=== PATIENT | female | born 1940 | race Caucasian/White ===

== ENCOUNTER 2019-01-10 03:35 | Inpatient (IN) | payer OTHER ==
--- NOTE | 2019-01-10 03:54 | PDOC ---
Attending Attestation - Resident Resident Name: Vishnu Kuhn - ED Attending Attestation I have performed the following: I have examined & evaluated the patient, The case was reviewed & discussed with the resident, I agree w/resident's findings & plan - HPI HPI: 01/10/19 03:53 Pt comes with tachycardia. SHe has significant cardiac history. - Physicial Exam PE: 01/10/19 04:49 Agree with resident exam. Pt has epigastric pain (and an EKG consistent with inferior ischemia) No rebound and no guarding. - Medical Decision Making 01/10/19 04:28 CBC normal; INR normal. 01/10/19 05:31 Patient Name: LAURA BOURGEOIS THIS IS A PRELIMINARY REPORT FROM [facility] DATE OF SERVICE: 2019-01-10 04:52:39 IMAGES: 412 EXAM: CT ABDOMEN AND PELVIS WITHOUT CONTRAST Small hiatal hernia. Vascular calcifications and/or small stones bilateral kidneys. No ureterolithiasis or obstructive uropathy. No bladder calculi. Unremarkable stomach, spleen, liver, and pancreas. Gallbladder not seen. No bowel obstruction, colitis, free fluid or free air. Normal appendix. Diverticulosis colon without acute diverticulitis. Small umbilical hernia containing fat. Pelvic floor laxity. Pessary in vagina. Calcifications versus surgical changes pericardium. Vertebroplasties L3-L5 01/10/19 05:49 Pt has multile kidney stones and renal insufficiency; she has a pessary to hold up her bladder, but she smells of urine, may have a UTI; UA is pending. Pt's complaint is epigastric pain and possible gastritis vs infeior MN. She will be admitted to the hospitalist for all her issues, however we feel that she belongs on the telelmetry unit, at least until she gets a 2nd cardiac enzyme. Heart Score/ECG Review - ECG Intrepretation Rhythm: Regular Rhythm - [place]: Normal - P and [place] Delta Wave(s) Present: No WPW: No - ST and T Early Repolarization: No Non Specific ST-T Wave changes: Yes - ECG Impressions Normal ECG: Yes Non-specific ST Elevation: No Ischemic Changes: Yes (lateral flipped T waves)
[2019-01-10 04:09] LABS: BASO % 0.7 % (0-2.0); EOS % 2.3 % (0-4.5); HEMATOCRIT 31.7 % (32.4-45.2); HEMOGLOBIN 10.6 GM/dL (10.7-15.3); LYMPH % 19.2 % (8-40); MCH 29.2 pg (25.7-33.7); MCHC 33.6 g/dl (32.0-36.0); MEAN CELL VOLUME 86.9 fl (80-96); MEAN PLT VOLUME 9.4 fl (7.5-11.1); NEUT % 71.8 % (42.8-82.8); PLATELET COUNT 164 K/MM3 (134-434); RBC 3.65 M/mm3 (3.60-5.2); RDW 13.1 % (11.6-15.6); WHITE BLOOD COUNT 7.1 K/mm3 (4.0-10.0)
[2019-01-10 04:20] LABS: INR 0.96 (0.83-1.09); PROTHROMBIN TIME (PATIENT) 11.3 SEC (9.7-13.0)
--- NOTE | 2019-01-10 04:23 | PDOC ---
History of Present Illness - General Stated Complaint: ABD PAIN Time Seen by Provider: 01/10/19 03:53 History Source: Patient Exam Limitations: No Limitations - History of Present Illness Initial Comments: 01/10/19 04:09 78 yo female pmh HTN, HLD, DM, multiple stents (on clopidegrel) multiple MIs ( allergic to ASA) presents to the ED with epigastric discomfort, N/V intermittently today. Pt is on vacation from [place], flight was 3 weeks ago , never been to [facility], no comparable EKG. Pt states her past NE have presented with similar epigastric discomfort, N/V and diarrhea. Denies F/C/N/V, calf tenderness, back pain, changes in bowel or bladder habits. Does not recall last echo Past History - Past Medical History Allergies/Adverse Reactions: Allergies Allergy/AdvReac Type Severity Reaction Status Date / Time aspirin AdvReac Itching Verified 01/10/19 04:59 Fish Containing Products AdvReac Itching, Verified 01/10/19 05:00 Vomiting Home Medications: Ambulatory Orders Cephalexin [Keflex] 500 mg PO DAILY 01/10/19 Clopidogrel Bisulfate [Clopidogrel] 75 mg PO DAILY 01/10/19 Doxazosin Mesylate 2 mg PO DAILY 01/10/19 Famotidine 20 mg PO DAILY 01/10/19 Furosemide 20 mg PO DAILY 01/10/19 Hydralazine HCl 100 mg PO DAILY 01/10/19 Hydrochlorothiazide 25 mg PO DAILY 01/10/19 Insulin NPH Hum/Reg Insulin Hm [Humulin 70-30 Vial] 100 unit SQ DAILY 01/10/19 Irbesartan 300 mg PO DAILY 01/10/19 Isosorbide Mononitrate [Isosorbide Mononitrate ER] 30 mg PO DAILY 01/10/19 Latanoprost 0.005% Eye Drops [Xalatan 0.005% Eye Drops -] 1 drop OU HS 01/10/19 Levothyroxine [Synthroid -] 50 mcg PO DAILY 01/10/19 Metoprolol Tartrate 50 mg PO DAILY 01/10/19 Nifedipine [Nifedipine ER] 60 mg PO DAILY 01/10/19 Ranitidine HCl 300 mg PO PRN PRN 01/10/19 Simvastatin 40 mg PO HS 01/10/19 Sumatriptan Succinate [Imitrex -] 50 mg PO DAILY 01/10/19 Review of Systems - Review of Systems Constitutional: Yes: See HPI HEENTM: Yes: See HPI Respiratory: Yes: See HPI Cardiac (ROS): Yes: See HPI ABD/GI: Yes: See HPI : Yes: See HPI Musculoskeletal: Yes: See HPI Integumentary: Yes: See HPI *Physical Exam - Physical Exam General Appearance: Yes: Nourished, Appropriately Dressed. No: Apparent Distress HEENT: positive: EOMI Neck: positive: Supple. negative: Carotid bruit Respiratory/Chest: positive: Lungs Clear, Normal Breath Sounds. negative: Respiratory Distress, Crackles, Rales, Rhonchi, Stridor, Wheezing Cardiovascular: positive: Regular Rhythm, S1, S2, Tachycardia. negative: Edema , JVD, Murmur Vascular Pulses: Dorsalis-Pedis (R): 4+, Doralis-Pedis (L): 4+ Gastrointestinal/Abdominal: positive: Flat, Soft. negative: Pulsatile Mass, Distended, Guarding, Rebound, Tenderness Musculoskeletal: negative: CVA Tenderness Extremity: positive: Normal Capillary Refill, Normal Inspection Integumentary: positive: Normal Color, Dry, Warm Neurologic: positive: Fully Oriented, Alert, Normal Mood/Affect, Normal Response Heart Score/ECG Review - History History: Moderately suspicious - Electrocardiogram EKG: Non specific repolarization disturbance - Age Age: >/= 65 - Risk Factors Risk Factors Heart Score: Yes Hx Hypercholesterolemia, Yes Hx Hypertension, Yes Hx Diabetes Based on the list above the patient has:: >/=3 risk factors or Hx atherosclerotic disease - Troponin Troponin: </= normal limit - Score Heart Score - Total: 6 ED Treatment Course - LABORATORY CBC & Chemistry Diagram: 01/10/19 04:01 01/10/19 04:01 Medical Decision Making - Medical Decision Making 01/10/19 05:48 78 yo female pmh HTN, HLD, DM, multiple stents (on clopidegrel) multiple MIs ( allergic to ASA) presents to the ED with epigastric discomfort, N/V intermittently today. Pt is on vacation from [place], flight was 3 weeks ago , never been to [facility], no comparable EKG. Pt states her past NE have presented with similar epigastric discomfort, N/V and diarrhea. Pain started over the last 24 hours, has been intermittent but most significant after 6 pm. Denies radiation, exertional symptoms, diaphoresis. Pt admits to worse pain on the left. Denies F/C/N/V, calf tenderness, back pain, changes in bowel or bladder habits. Does not recall last echo vitals show elevated HR and BP DDX INLT: ACS, PE, Pneumo, UTI, Mesinteric ischemia, kidney stone Cardiac work up including UA sent EKG sinus tach with T wave inversions lateral leads, no ekg for comparison Trop neg Cr elevate due to epigastric/left flank nature of pain with Cr of 3.1, dry scan APCT done, demonstrates stones without hydro. No known CKD or past Cr to compare values. 500 ml fluids given Pt will be admitted for r/o acs, renal insuff 01/10/19 06:36 Pt accepted for admission *DC/Admit/Observation/Transfer Diagnosis at time of Disposition: Ruled out for myocardial infarction, Renal insufficiency - Discharge Dispostion Condition at time of disposition: Stable Decision to Admit order: Yes - Referrals - Patient Instructions - Post Discharge Activity
[2019-01-10 04:37] LABS: ALBUMIN 3.9 g/dl (3.4-5.0); BILIRUBIN,TOTAL 0.3 mg/dL (0.2-1); BLOOD UREA NITROGEN 89.9 mg/dL (7-18); CALCIUM 9.2 mg/dL (8.5-10.1); CREATININE 3.1 mg/dL (0.55-1.3); POTASSIUM 4.1 mmol/L (3.5-5.1); TOT PROT 7.8 g/dl (6.4-8.2)
[2019-01-10] MEDS ORDERED: TAMSULOSIN HCL 0.4 MG CAP PO ONE (05:32)
[2019-01-10] MEDS ORDERED: SODIUM CHLORIDE 500 ML IV STA (05:33)
[2019-01-10] MEDS ORDERED: TAMSULOSIN HCL 0.4 MG CAP ONE (05:35)
[2019-01-10] MEDS ORDERED: ONDANSETRON 4 MG/2 ML VIAL IVPUSH ONE (06:37)
[2019-01-10] MEDS ORDERED: MAG HYDROX/AL HYDROX/SIMETH 30 ML UNIT-DOSE CUP PO ONE (06:43)
[2019-01-10] MEDS ORDERED: FAMOTIDINE 20 MG/50 ML IVPB 20 MG/50 ML MG IVPB ONE ×2 (06:43→06:57)
[2019-01-10] MEDS ORDERED: ONDANSETRON 4 MG/2 ML VIAL ONE (06:57)
[2019-01-10] MEDS ORDERED: MAG HYDROX/AL HYDROX/SIMETH 30 ML UNIT-DOSE CUP ONE (06:57)
[2019-01-10 07:39] LABS: EPI CELLS 1.6 /HPF (0-5/HPF); HYALINE CASTS 3 /lpf (0-8); PH,URINE 6.5 (5.0-8.0); URINE APPEARANCE CLOUDY; URINE BACTERIA 132.9 /hpf (NEGATIVE); URINE BILIRUBIN NEGATIVE (NEGATIVE); URINE COLOR YELLOW; URINE GLUCOSE (UA) NEGATIVE (NEGATIVE); URINE KETONE NEGATIVE (NEGATIVE); URINE LEUK ESTERASE 3+ (NEGATIVE); URINE NITRITE NEGATIVE (NEGATIVE); URINE PROTEIN 2+ (NEGATIVE); URINE RBC 2 /hpf (0-4); URINE UROBILINOGEN 0.2 mg/dL (0.2-1.0); URINE WBC 123 /hpf (0-5)
[2019-01-10] MEDS ORDERED: hydrALAZINE HCL 50 MG TABLET (FP) PO SCH (10:00)
[2019-01-10] MEDS ORDERED: LOSARTAN POTASSIUM 50 MG TABLET (FP) PO SCH (10:00)
--- NOTE | 2019-01-10 10:15 | CON.CARD ---
Consult Consult Specialty:: cardio - History of Present Illness Chief Complaint: abd pain History of Present Illness: 78 F visiting from [place] here with abd pain. history obtained via commercial parts professional. on DOA pt woke overnight very hungry so drank Ensure rapidly--immediately began to feel full stomach and gurgling and gas. then abd pain and vomited. bp was around 190/100, then she became very nervous and went up to 220/110. uses home wrist machine--has had readings high near 190 the past week or so, usually much better than this. at no point cp, sob, diaph, presyncope/LH. no more sx's-feels in USOH currently. 1 week ago after drinking small amt of warm milk similar, milder sx's--did not seek medical attention. diarrhea then too. often feels very gassy/bloated after eats. but never has abd pain like this, except when had her CO she also had diarrhea with same type of pain. had CABG at that time (2004). then in 2006 had stent(s?)--on plavix without ASA (ASA allergy). PMH: HTN HPL DM on insulin - Alcohol/Substance Use Hx Alcohol Use: No - Smoking History Smoking history: Never smoked Home Medications - Allergies Allergies/Adverse Reactions: Allergies Allergy/AdvReac Type Severity Reaction Status Date / Time aspirin AdvReac Itching Verified 01/10/19 04:59 Fish Containing Products AdvReac Itching, Verified 01/10/19 05:00 Vomiting - Home Medications Home Medications: Ambulatory Orders Clopidogrel Bisulfate [Clopidogrel] 75 mg PO DAILY 01/10/19 Famotidine 20 mg PO DAILY 01/10/19 Hydralazine HCl 100 mg PO DAILY 01/10/19 Hydrochlorothiazide 25 mg PO DAILY 01/10/19 Insulin NPH Hum/Reg Insulin Hm [Humulin 70-30 Vial] 100 unit SQ DAILY 01/10/19 Irbesartan 300 mg PO DAILY 01/10/19 Isosorbide Mononitrate [Isosorbide Mononitrate ER] 30 mg PO DAILY 01/10/19 Latanoprost 0.005% Eye Drops [Xalatan 0.005% Eye Drops -] 1 drop OU HS 01/10/19 Metoprolol Tartrate 50 mg PO BID 01/10/19 Nifedipine [Nifedipine ER] 60 mg PO DAILY 01/10/19 Ranitidine HCl 300 mg PO PRN PRN 01/10/19 Sumatriptan Succinate [Imitrex -] 50 mg PO DAILY 01/10/19 Family Disease History - Family Disease History Family History: Denies (no known cmp) Review of Systems - Review of Systems Constitutional: denies: Chills, Fever Eyes: denies: Eye Pain HENT: denies: Nasal Congestion Neck: denies: Stiffness Cardiovascular: denies: Palpitations Respiratory: denies: Orthopnea, PND Gastrointestinal: denies: Rectal Bleeding, Vomiting Blood Genitourinary: denies: Burning, Hematuria Musculoskeletal: denies: Muscle Pain Integumentary: denies: Rash Neurological: denies: Numbness, Seizure, Syncope Endocrine: denies: Excessive Sweating Hematology/Lymphatic: denies: Excessive Bleeding Vital Signs: Vital Signs Temperature 97.6 F 01/10/19 08:49 Pulse Rate 99 H 01/10/19 08:49 Respiratory Rate 20 01/10/19 06:42 Blood Pressure 129/71 01/10/19 08:49 O2 Sat by Pulse Oximetry (%) 99 01/10/19 08:49 Constitutional: Yes: Well Nourished, No Distress Eyes: No: Sclera Icterus HENT: No: Nasal Congestion Neck: No: Decreased ROM Respiratory: Yes: CTA Bilaterally. No: Accessory Muscle Use, Rales, Wheezes Gastrointestinal: Yes: Normal Bowel Sounds. No: Distention, Hepatomegaly, Palpable Mass, Tenderness Cardiovascular: Yes: Regular Rate and Rhythm JVD: No Carotid Bruit: No PMI: Non-Displaced Heart Sounds: Yes: S1, S2. No: Gallop Murmur: No: Systolic Murmur, Diastolic Murmur Musculoskeletal: Yes: Other (No kyphosis) Extremities: No: Cold, Cyanosis Edema: No Peripheral Pulses: 2+ Left Carotid, 2+ Right Carotid, 2+ Left Doralis Pedis, 2+ Right Dorsalis Pedis Integumentary: No: Jaundice Neurological: Yes: Alert, Oriented (x3) Psychiatric: No: Agitated - Other Data Labs, Other Data: CBC, BMP 01/10/19 04:01 01/10/19 04:01 INR, PTT INR 0.96 (0.83-1.09) 01/10/19 04:01 Troponin, BNP 01/10/19 04:01 Troponin I 0.02 Troponin, BNP 01/10/19 04:01 Troponin I 0.02 Laboratory Tests 01/10/19 01/10/19 01/10/19 04:01 04:01 04:32 WBC 7.1 Hgb 10.6 L Plt Count 164 Sodium 136 Potassium 4.1 Carbon Dioxide 22 BUN 89.9 H Creatinine 3.1 H Lactic Acid 1.4 AST 21 ALT 21 Creatine Kinase 86 Troponin I 0.02 Lipase 259 Assessment/Plan ECG: sinus tach, normal axis/interv. no path q's. nonsp ST-T lateral leads (no prior) ECG #2: no signif change CXR: sternal sutures, prominent heart. clear lungs/pleura abd pain, vomiting/diarrhea, h/o CAD: -[facility], states had CO then. insulin-dep't diabetic -afebrile. WBC, lipase, lactate, LFTs WNL. CT abd/pelvis with no acute process. abdomen is non-tender. -sx's sound most consistent with GI etiology with strong gas/bloating component , ? component of DM gastroparesis. -however must exclude UA/ACS. -ECG non-ischemic, nonsp ST-T ? LVH related (cardiomegaly noted on CXR). initial trop neg--rpt pending -mult prior stents with ASA allergy, on plavix--details of stents not available- ->cont plavix, home anti-anginals (metoprolol, iso mononitrate) -on simva 40 at home--will change to atorva 80 while here for possibility of ACS -echo -if enzymes negative, plan noninvasive ischemia eval (MPI) saturday -hi risk for ROGER from cath (GFR <20, DM, elderly) HTN: -initially elevated in ER-->came down -currently controlled -cont home meds CKD: -no baseline data available -bun/creat 89/3.1. monitor trend. anemia: -hgb 10, no prior baseline -trend labs
[2019-01-10] MEDS ORDERED: LOSARTAN POTASSIUM 50 MG TABLET (FP) ONE (10:49)
[2019-01-10] MEDS: HYDROCHLOROTHIAZIDE 25 MG TABLET (FP) PO SCH (11:00)
[2019-01-10] MEDS: NIFEdipine E.R 60 MG TABLET (UD) PO SCH (11:00)
[2019-01-10] MEDS: METOPROLOL TARTRATE 50 MG TABLET (FP) PO SCH ×2 (11:00→22:30)
[2019-01-10] MEDS ORDERED: INSULIN SLIDING SCALE (NOVOLOG) 1 VIAL SQ SCH (11:00)
[2019-01-10] MEDS: RANITIDINE HCL 150 MG TABLET (FP) PO SCH (11:00)
[2019-01-10] MEDS ORDERED: CLOPIDOGREL BISULFATE 75 MG TABLET (FP) ONE (11:11)
[2019-01-10] MEDS ORDERED: METOPROLOL TARTRATE 50 MG TABLET (FP) ONE (11:11)
--- NOTE | 2019-01-10 11:37 | HP ---
CHIEF COMPLAINT:abdominal discomfort, nausea, vomiting PCP:from [place] HISTORY OF PRESENT ILLNESS: Patient is a 78 year old female, lithuanian speaking, with past medical history of HTN, HLD, IDDM, and CAD (s/p CABG 2004 and PCI 2006), presented to the ED due sudden onset abdominal discomfort, accompanied by nausea and an episode of NBNB vomiting after dinner last night. Patient reports the discomfort as bloating/gas , more so at the epigastric area. Patient reported she had similar symptoms in the past when she had the HI. Patient reported she became anxious overnight and was not able to sleep. She came here in the for a vacation from [place]. She arrived 3 weeks ago, and is scheduled to fly back on Saturday. Patient also reported she missed some of her medications for the past 3 days as she ran out. At time of interview, patient reports feelings, eating comfortably in bed. She denies any fever, chills, headache, dizziness, chest pain, SOB, abdominal pain, diarrhea. ER course was notable for: (1)Trop neg x1 (2) (3) Recent Travel:from [place] PAST MEDICAL HISTORY: HTN HLD IDDM CAD PAST SURGICAL HISTORY: CABG (2004) PCI (2006) Hx of C-sections Social History: Smoking:denies Alcohol:denies Drugs: denies Family History:none Allergies aspirin Adverse Reaction (Verified 01/10/19 04:59) Itching Fish Containing Products Adverse Reaction (Verified 01/10/19 05:00) Itching, Vomiting HOME MEDICATIONS: Home Medications Medication Instructions Recorded Clopidogrel Bisulfate [Clopidogrel] 75 mg PO DAILY 01/10/19 Famotidine 20 mg PO DAILY 01/10/19 Hydralazine HCl 100 mg PO DAILY 01/10/19 Hydrochlorothiazide 25 mg PO DAILY 01/10/19 Insulin NPH Hum/Reg Insulin Hm 100 unit SQ DAILY 01/10/19 [Humulin 70-30 Vial] Irbesartan 300 mg PO DAILY 01/10/19 Isosorbide Mononitrate [Isosorbide 30 mg PO DAILY 01/10/19 Mononitrate ER] Latanoprost 0.005% Eye Drops 1 drop OU HS 01/10/19 [Xalatan 0.005% Eye Drops -] Metoprolol Tartrate 50 mg PO BID 01/10/19 Nifedipine [Nifedipine ER] 60 mg PO DAILY 01/10/19 Ranitidine HCl 300 mg PO PRN PRN 01/10/19 Sumatriptan Succinate [Imitrex -] 50 mg PO DAILY 01/10/19 REVIEW OF SYSTEMS CONSTITUTIONAL: Absent: fever, chills, diaphoresis, generalized weakness, malaise, loss of appetite, weight change HEENT: Absent: rhinorrhea, nasal congestion, throat pain, throat swelling, difficulty swallowing, mouth swelling, ear pain, eye pain, visual changes CARDIOVASCULAR: Absent: chest pain, syncope, palpitations, irregular heart rate, lightheadedness , peripheral edema RESPIRATORY: Absent: cough, shortness of breath, dyspnea with exertion, orthopnea, wheezing, stridor, hemoptysis GASTROINTESTINAL: nausea, vomiting, epigastric discomfort Absent: abdominal distension,diarrhea, constipation, melena, hematochezia GENITOURINARY: Absent: dysuria, frequency, urgency, hesitancy, hematuria, flank pain, genital pain MUSCULOSKELETAL: Absent: myalgia, arthralgia, joint swelling, back pain, neck pain SKIN: Absent: rash, itching, pallor HEMATOLOGIC/IMMUNOLOGIC: Absent: easy bleeding, easy bruising, lymphadenopathy, frequent infections ENDOCRINE: Absent: unexplained weight gain, unexplained weight loss, heat intolerance, cold intolerance NEUROLOGIC: Absent: headache, focal weakness or paresthesias, dizziness, unsteady gait, seizure, mental status changes, bladder or bowel incontinence PSYCHIATRIC: Absent: anxiety, depression, suicidal or homicidal ideation, hallucinations. PHYSICAL EXAMINATION Vital Signs - 24 hr 01/10/19 01/10/19 01/10/19 03:50 06:42 08:49 Temperature 97.9 F 97.6 F Pulse Rate 110 H Pulse Rate [ 121 H 99 H Radial] Respiratory 18 20 Rate Blood Pressure 167/77 Blood Pressure 169/89 129/71 [Left Arm] O2 Sat by Pulse 100 100 99 Oximetry (%) GENERAL: Awake, alert, and fully oriented, in no acute distress. HEAD: Normal with no signs of trauma. EYES: PERRLa, EOMI, sclera anicteric, conjunctiva clear. EARS, NOSE, THROAT: Moist mucous membranes. NECK: Normal range of motion, supple. LUNGS: Breath sounds equal, clear to auscultation bilaterally. HEART: Regular rate and rhythm, normal S1 and S2 without murmur, rub or gallop. ABDOMEN: Soft, nontender, not distended, normoactive bowel sounds. MUSCULOSKELETAL: Normal range of motion at all joints. UPPER EXTREMITIES: 2+ pulses, warm, well-perfused. LOWER EXTREMITIES: 2+ pulses, warm, well-perfused. No peripheral edema. NEUROLOGICAL: Cranial nerves II-XII intact. Normal speech. PSYCHIATRIC: Cooperative. Good eye contact. Appropriate mood and affect. SKIN: Warm, dry, normal turgor, no rashes or lesions noted. Laboratory Results - last 24 hr 01/10/19 01/10/19 01/10/19 04:01 04:01 04:01 WBC 7.1 RBC 3.65 Hgb 10.6 L Hct 31.7 L MCV 86.9 MCH 29.2 MCHC 33.6 RDW 13.1 Plt Count 164 MPV 9.4 Absolute Neuts (auto) 5.1 Neutrophils % 71.8 Lymphocytes % 19.2 Monocytes % 6.0 Eosinophils % 2.3 Basophils % 0.7 Nucleated RBC % 0 PT with INR 11.30 INR 0.96 Sodium 136 Potassium 4.1 Chloride 101 Carbon Dioxide 22 Anion Gap 13 BUN 89.9 H Creatinine 3.1 H Est GFR (CKD-EPI)AfAm 15.80 Est GFR (CKD-EPI)NonAf 13.63 POC Glucometer Random Glucose 146 H Lactic Acid Calcium 9.2 Magnesium 2.0 Total Bilirubin 0.3 AST 21 ALT 21 Alkaline Phosphatase 68 Creatine Kinase 86 Troponin I 0.02 Total Protein 7.8 Albumin 3.9 Lipase 259 Urine Color Urine Appearance Urine pH Ur Specific [place] Urine Protein Urine Glucose (UA) Urine Ketones Urine Blood Urine Nitrite Urine Bilirubin Urine Urobilinogen Ur Leukocyte Esterase Urine WBC (Auto) Urine RBC (Auto) Urine Casts (Auto) U Epithel Cells (Auto) Urine Bacteria (Auto) 01/10/19 01/10/19 01/10/19 04:32 07:25 07:42 WBC RBC Hgb Hct MCV MCH MCHC RDW Plt Count MPV Absolute Neuts (auto) Neutrophils % Lymphocytes % Monocytes % Eosinophils % Basophils % Nucleated RBC % PT with INR INR Sodium Potassium Chloride Carbon Dioxide Anion Gap BUN Creatinine Est GFR (CKD-EPI)AfAm Est GFR (CKD-EPI)NonAf POC Glucometer 158 Random Glucose Lactic Acid 1.4 Calcium Magnesium Total Bilirubin AST ALT Alkaline Phosphatase Creatine Kinase Troponin I Total Protein Albumin Lipase Urine Color Yellow Urine Appearance Cloudy Urine pH 6.5 Ur Specific [place] 1.009 L Urine Protein 2+ H Urine Glucose (UA) Negative Urine Ketones Negative Urine Blood Trace Urine Nitrite Negative Urine Bilirubin Negative Urine Urobilinogen 0.2 Ur Leukocyte Esterase 3+ H Urine WBC (Auto) 123 Urine RBC (Auto) 2 Urine Casts (Auto) 3 U Epithel Cells (Auto) 1.6 Urine Bacteria (Auto) 132.9 01/10/19 10:40 WBC RBC Hgb Hct MCV MCH MCHC RDW Plt Count MPV Absolute Neuts (auto) Neutrophils % Lymphocytes % Monocytes % Eosinophils % Basophils % Nucleated RBC % PT with INR INR Sodium Potassium Chloride Carbon Dioxide Anion Gap BUN Creatinine Est GFR (CKD-EPI)AfAm Est GFR (CKD-EPI)NonAf POC Glucometer Random Glucose Lactic Acid Calcium Magnesium Total Bilirubin AST ALT Alkaline Phosphatase Creatine Kinase 97 Troponin I 0.09 H Total Protein Albumin Lipase Urine Color Urine Appearance Urine pH Ur Specific [place] Urine Protein Urine Glucose (UA) Urine Ketones Urine Blood Urine Nitrite Urine Bilirubin Urine Urobilinogen Ur Leukocyte Esterase Urine WBC (Auto) Urine RBC (Auto) Urine Casts (Auto) U Epithel Cells (Auto) Urine Bacteria (Auto) ASSESSMENT/PLAN: Patient is a 78 year old female, lithuanian speaking, with past medical history of HTN, HLD, IDDM, and CAD (s/p CABG 2004 and PCI 2006), presented to the ED due sudden onset abdominal discomfort, accompanied by nausea and an episode of NBNB vomiting after dinner. #Epigastric discomfort -rule out ACS, may be GERD vs DM gastropathy -CTAP: no acute abdominal pathology -Tele monitoring -Trop 0.02 --> 0.09, will continue to trend -Cardiology (Dr. Pollock) consulted. Recommendations appreciated. -Continue ASA and Plavix -Switch Simvastatin to Lipitor 80mg -Echo #ELEAZAR -baseline unknown -Cr 3.1 -will order urine lytes and crea -CT scan done showed no renal obstruction -Nephrology (Dr. Oseguera) consulted. #IDDM -Insulin sliding scale implemented -BGM ACHS -will hold home insulin (NPH) #HLD -Will switch Simvastatin to Atorvastatin 80mg daily #HTN -Will continue home home meds Irbesartan, HCTZ, Metoprolol, Nifedipine #FEN -Not on any standing fluids -Electrolytes wnl, routine bmp monitoring -Diabetic/sodium restricted diet #Prophylaxis -Heparin 5000units sq tid #Disposition -Tele Visit type - Emergency Visit Emergency Visit: Yes ED Registration Date: 01/10/19 Care time: The patient presented to the Emergency Department on the above date and was hospitalized for further evaluation of their emergent condition. - New Patient This patient is new to me today: Yes Date on this admission: 01/11/19 - Critical Care Critical Care patient: No ATTENDING PHYSICIAN STATEMENT I saw and evaluated the patient. I reviewed the resident's note and discussed the case with the resident. I agree with the resident's findings and plan as documented. SUBJECTIVE: OBJECTIVE: ASSESSMENT AND PLAN:
[2019-01-10] MEDS: INSULIN SLIDING SCALE (NOVOLOG) 1 VIAL SQ SCH ×3 (12:00→22:30)
[2019-01-10] MEDS: CLOPIDOGREL BISULFATE 75 MG TABLET (FP) PO SCH (12:54)
[2019-01-10] MEDS ORDERED: HEPARIN NA (PORCINE) 5,000 UNITS/ML 1ML VIAL SQ SCH (14:00)
[2019-01-10] MEDS ORDERED: HEPARIN NA (PORCINE) 5,000 UNITS/ML 1ML VIAL ONE (14:18)
--- NOTE | 2019-01-10 16:15 | PN ---
Teaching Attending Note Name of Resident: Fouzia Almanza ATTENDING PHYSICIAN STATEMENT I saw and evaluated the patient. I reviewed the resident's note and discussed the case with the resident. I agree with the resident's findings and plan as documented. SUBJECTIVE: Episode of epigastric pain resolved. No nausea/vomiting/ lightheadedness. Tolerating oral intake. OBJECTIVE: Afebrile, Hemodynamically Stable. AAO x 3. Last Vital Signs Temp Pulse Resp BP Pulse Ox 97.6 F 99 H 20 129/71 99 01/10/19 08:49 01/10/19 08:49 01/10/19 06:42 01/10/19 08:49 01/10/19 08:49 HEENT- Atramatic, normocephalic. Heart - S1, s2, RRR Lungs - clear to auscultation Abdomen - Soft, non-tender. Bowel Sounds normal. Extremities - No calf tenderness. No edema. Neuro - AAO x 3. Tone/Power normal all 4 extremities. Laboratory Results - last 24 hr 01/10/19 01/10/19 01/10/19 04:01 04:01 04:01 WBC 7.1 RBC 3.65 Hgb 10.6 L Hct 31.7 L MCV 86.9 MCH 29.2 MCHC 33.6 RDW 13.1 Plt Count 164 MPV 9.4 Absolute Neuts (auto) 5.1 Neutrophils % 71.8 Lymphocytes % 19.2 Monocytes % 6.0 Eosinophils % 2.3 Basophils % 0.7 Nucleated RBC % 0 PT with INR 11.30 INR 0.96 Sodium 136 Potassium 4.1 Chloride 101 Carbon Dioxide 22 Anion Gap 13 BUN 89.9 H Creatinine 3.1 H Est GFR (CKD-EPI)AfAm 15.80 Est GFR (CKD-EPI)NonAf 13.63 POC Glucometer Random Glucose 146 H Lactic Acid Calcium 9.2 Magnesium 2.0 Total Bilirubin 0.3 AST 21 ALT 21 Alkaline Phosphatase 68 Creatine Kinase 86 Troponin I 0.02 Total Protein 7.8 Albumin 3.9 Lipase 259 Urine Color Urine Appearance Urine pH Ur Specific [place] Urine Protein Urine Glucose (UA) Urine Ketones Urine Blood Urine Nitrite Urine Bilirubin Urine Urobilinogen Ur Leukocyte Esterase Urine WBC (Auto) Urine RBC (Auto) Urine Casts (Auto) U Epithel Cells (Auto) Urine Bacteria (Auto) 08/01/10/19 01/10/19 04:32 07:25 07:42 WBC RBC Hgb Hct MCV MCH MCHC RDW Plt Count MPV Absolute Neuts (auto) Neutrophils % Lymphocytes % Monocytes % Eosinophils % Basophils % Nucleated RBC % PT with INR INR Sodium Potassium Chloride Carbon Dioxide Anion Gap BUN Creatinine Est GFR (CKD-EPI)AfAm Est GFR (CKD-EPI)NonAf POC Glucometer 158 Random Glucose Lactic Acid 1.4 Calcium Magnesium Total Bilirubin AST ALT Alkaline Phosphatase Creatine Kinase Troponin I Total Protein Albumin Lipase Urine Color Yellow Urine Appearance Cloudy Urine pH 6.5 Ur Specific [place] 1.009 L Urine Protein 2+ H Urine Glucose (UA) Negative Urine Ketones Negative Urine Blood Trace Urine Nitrite Negative Urine Bilirubin Negative Urine Urobilinogen 0.2 Ur Leukocyte Esterase 3+ H Urine WBC (Auto) 123 Urine RBC (Auto) 2 Urine Casts (Auto) 3 U Epithel Cells (Auto) 1.6 Urine Bacteria (Auto) 132.9 01/10/19 01/10/19 10:40 12:49 WBC RBC Hgb Hct MCV MCH MCHC RDW Plt Count MPV Absolute Neuts (auto) Neutrophils % Lymphocytes % Monocytes % Eosinophils % Basophils % Nucleated RBC % PT with INR INR Sodium Potassium Chloride Carbon Dioxide Anion Gap BUN Creatinine Est GFR (CKD-EPI)AfAm Est GFR (CKD-EPI)NonAf POC Glucometer 178 Random Glucose Lactic Acid Calcium Magnesium Total Bilirubin AST ALT Alkaline Phosphatase Creatine Kinase 97 Troponin I 0.09 H Total Protein Albumin Lipase Urine Color Urine Appearance Urine pH Ur Specific [place] Urine Protein Urine Glucose (UA) Urine Ketones Urine Blood Urine Nitrite Urine Bilirubin Urine Urobilinogen Ur Leukocyte Esterase Urine WBC (Auto) Urine RBC (Auto) Urine Casts (Auto) U Epithel Cells (Auto) Urine Bacteria (Auto) Current Medications Generic Name Dose Route Start Last Admin Trade Name Freq PRN Reason Stop Dose Admin Atorvastatin Calcium 80 mg 01/10/19 22:00 Lipitor - PO HS NISHA Clopidogrel Bisulfate 75 mg 01/10/19 10:00 01/10/19 12:54 Plavix - PO 75 mg DAILY NISHA Administration Heparin Sodium (Porcine) 5,000 unit 01/10/19 14:00 01/10/19 14:32 Heparin - SQ 5,000 unit TID NISHA Administration Hydralazine HCl 100 mg 01/10/19 10:00 01/10/19 11:00 Apresoline - PO 100 mg DAILY NISHA Administration Hydrochlorothiazide 25 mg 01/10/19 10:00 01/10/19 11:00 Hctz - PO 25 mg DAILY NISHA Administration Insulin Aspart 1 vial 01/10/19 11:00 01/10/19 12:00 Novolog Vial Sliding Scale - SQ 2 units ACHS NISHA Administration Protocol Isosorbide Mononitrate 30 mg 01/11/19 10:00 Imdur - PO DAILY NISHA Latanoprost 1 drop 01/10/19 22:00 Xalatan 0.005% Eye Drops - OU HS [facility] Losartan Potassium 100 mg 01/10/19 10:00 01/10/19 11:00 Cozaar - PO 100 mg DAILY NISHA Administration Metoprolol Tartrate 50 mg 01/10/19 10:00 01/10/19 11:00 Lopressor - PO 50 mg BID NISHA Administration Nifedipine 60 mg 01/10/19 10:00 01/10/19 11:00 Procardia Xl - PO 60 mg DAILY NISHA Administration Ranitidine HCl 150 mg 01/10/19 10:00 01/10/19 11:00 Zantac - PO 150 mg DAILY NISHA Administration Home Medications Medication Instructions Recorded Clopidogrel Bisulfate [Clopidogrel] 75 mg PO DAILY 01/10/19 Famotidine 20 mg PO DAILY 01/10/19 Hydralazine HCl 100 mg PO DAILY 01/10/19 Hydrochlorothiazide 25 mg PO DAILY 01/10/19 Insulin NPH Hum/Reg Insulin Hm 100 unit SQ DAILY 01/10/19 [Humulin 70-30 Vial] Irbesartan 300 mg PO DAILY 01/10/19 Isosorbide Mononitrate [Isosorbide 30 mg PO DAILY 01/10/19 Mononitrate ER] Latanoprost 0.005% Eye Drops 1 drop OU HS 01/10/19 [Xalatan 0.005% Eye Drops -] Metoprolol Tartrate 50 mg PO BID 01/10/19 Nifedipine [Nifedipine ER] 60 mg PO DAILY 01/10/19 Ranitidine HCl 300 mg PO PRN PRN 01/10/19 Sumatriptan Succinate [Imitrex -] 50 mg PO DAILY 01/10/19 ASSESSMENT AND PLAN: 78 year old female with history of HTN, HLD, DM 2, CAD (s/p CABG 2004/PCI 2006) , DJD Spine s/p Spinal Sx, presents with rapid onset epigastric discomfort with associated vomiting x 1/bloating. No palpitations/dyspnea/diaphoresis/ lightheadedness. 1. Epigastric Pain, possible Atypical CP Rising TropI, TnI up to 0.09 ECG - no ischemic changes. CT A/P - non-obstructing renal stones, diverticulosis, multilevel DJD L spine s/ p Sx. No acute intra-abdominal process. Telemonitoring, Serial tropI, NTG PRN Cardiology consulted - for NPI saturday if no further TropI rise. If any further troponin rise, to consider starting Heparin drip. 2. CAD s/p CABG - Continue Clopidogrel, BB, ARB, ISMN. (ASA Allergy) NTG PRN 2. HTN - Continue ISMN, Irbesartan, Metoprolol, Nifedipine. 3. HLD - on Lipitor 4. DM 2 - Maintain on sliding scale. 5. ELEAZAR vs CKD - Baseline Creat unknown. Patient from [facility] Will attempt to find out. No obstruction on imaging. Urine Na and Urine Creat requested. DVT Px - Heparin SQ
[2019-01-10] MEDS ORDERED: HEPARIN NA (PORCINE) 5,000 UNITS/ML 1ML VIAL IVPUSH PRN ×2 (18:02)
[2019-01-10] MEDS ORDERED: HEPARIN INFUSION - 25,000 UNITS/500 ML INFUS.BAG IVPB ONE (18:35)
[2019-01-10] MEDS: HEPARIN - 25,000 UNIT in SODIUM CHLORIDE 495 ML IV SCH (18:53)
[2019-01-10] MEDS ORDERED: hydrALAZINE HCL 20 MG/ML VIAL IVPUSH ONE (20:24)
[2019-01-10] MEDS ORDERED: PT OWN MED DRAWER 7, Y5N ONE (21:00)
[2019-01-10 21:11] VITALS: BMI 24.5
[2019-01-10 21:32] LABS: RATIO URIN PROTEIN/URIN CREAT 4.81 MG/DL
[2019-01-10 21:33] LABS: PH URINE RANDOM 7.5 (4.5-8)
[2019-01-10] MEDS: ATORVASTATIN CA 80 MG TABLET (FP) PO SCH (22:30)
[2019-01-10] MEDS: LATANOPROST 0.005% OPHTH SOLN 2.5ML BOTTLE OU SCH (23:55)
[2019-01-11] MEDS: INSULIN SLIDING SCALE (NOVOLOG) 1 VIAL SQ SCH ×4 (06:55→21:10)
[2019-01-11] MEDS: LEVOTHYROXINE NA 50 MCG TABLET (FP) PO SCH (06:55)
[2019-01-11 07:38] LABS: BASO % 0.6 % (0-2.0); EOS % 8.4 % (0-4.5); HEMATOCRIT 30.1 % (32.4-45.2); HEMOGLOBIN 10.3 GM/dL (10.7-15.3); LYMPH % 34.5 % (8-40); MCH 29.9 pg (25.7-33.7); MCHC 34.3 g/dl (32.0-36.0); MEAN CELL VOLUME 87.1 fl (80-96); MEAN PLT VOLUME 9.6 fl (7.5-11.1); MONO % 8.4 % (3.8-10.2); NEUT % 48.1 % (42.8-82.8); PLATELET COUNT 179 K/MM3 (134-434); RBC 3.46 M/mm3 (3.60-5.2); RDW 13.2 % (11.6-15.6); WHITE BLOOD COUNT 6.4 K/mm3 (4.0-10.0)
--- NOTE | 2019-01-11 08:26 | PN ---
Progress Note, Physician Chief Complaint: abd pain History of Present Illness: no more abd pain, vomiting or diarrhea no cp, sob no palpitations no cigs - Current Medication List Current Medications: Active Medications Atorvastatin Calcium (Lipitor -) 80 mg PO HS [facility] Last Admin: 01/10/19 22:30 Dose: 80 mg Clopidogrel Bisulfate (Plavix -) 75 mg PO DAILY [facility] Last Admin: 01/10/19 12:54 Dose: 75 mg Heparin Sodium (Porcine) (Heparin -) 1,000 unit IVPUSH PRN PRN PRN Reason: Heparin Heparin Sodium (Porcine) (Heparin -) 5,000 unit IVPUSH PRN PRN PRN Reason: Heparin Hydralazine HCl (Apresoline -) 100 mg PO DAILY [facility] Last Admin: 01/10/19 11:00 Dose: 100 mg Hydrochlorothiazide (Hctz -) 25 mg PO DAILY [facility] Last Admin: 01/10/19 11:00 Dose: 25 mg Heparin Sodium (Porcine) 25, (000 unit/ Sodium Chloride) 500 mls @ 16 mls/hr IV TITR [facility]; Protocol Last Titration: 01/11/19 03:05 Dose: 650 unit/hr, 13 mls/hr Insulin Aspart (Novolog Vial Sliding Scale -) 1 vial SQ ACHS [facility]; Protocol Last Admin: 01/11/19 06:55 Dose: Not Given Isosorbide Mononitrate (Imdur -) 30 mg PO DAILY [facility] Latanoprost (Xalatan 0.005% Eye Drops -) 1 drop OU HS [facility] Last Admin: 01/10/19 23:55 Dose: Not Given Levothyroxine Sodium (Synthroid -) 50 mcg PO DAILY@0700 [facility] Last Admin: 01/11/19 06:55 Dose: 50 mcg Losartan Potassium (Cozaar -) 100 mg PO DAILY [facility] Last Admin: 01/10/19 11:00 Dose: 100 mg Metoprolol Tartrate (Lopressor -) 50 mg PO BID [facility] Last Admin: 01/10/19 22:30 Dose: 50 mg Nifedipine (Procardia Xl -) 60 mg PO DAILY [facility] Last Admin: 01/10/19 11:00 Dose: 60 mg Ranitidine HCl (Zantac -) 150 mg PO DAILY [facility] Last Admin: 01/10/19 11:00 Dose: 150 mg Sumatriptan Succinate (Imitrex -) 50 mg PO DAILY PRN PRN Reason: HEADACHE - Objective Vital Signs: Vital Signs Temperature 97.6 F 01/11/19 06:00 Pulse Rate 79 01/11/19 06:00 Respiratory Rate 17 01/11/19 08:00 Blood Pressure 139/75 01/11/19 06:00 O2 Sat by Pulse Oximetry (%) 100 01/11/19 08:00 Constitutional: Yes: No Distress, Calm Eyes: No: Sclera Icterus HENT: No: Nasal Congestion Cardiovascular: Yes: Regular Rate and Rhythm, S1, S2, Other (PMI non diplaced). No: JVD, Gallop, Murmur Respiratory: Yes: CTA Bilaterally. No: Accessory Muscle Use, Rales, Wheezes Gastrointestinal: Yes: Normal Bowel Sounds, Soft. No: Tenderness Musculoskeletal: Yes: Other (No kyphosis) Extremities: No: Cold, Cyanosis Edema: No Integumentary: No: Jaundice Neurological: Yes: Alert, Oriented (x3) Psychiatric: No: Agitated Labs: CBC, BMP 01/11/19 05:52 INR, PTT INR 0.96 (0.83-1.09) 01/10/19 04:01 Assessment/Plan ECG: sinus tach, normal axis/interv. no path q's. nonsp ST-T lateral leads (no prior) ECG #2: no signif change CXR: sternal sutures, prominent heart. clear lungs/pleura tele: NSR, APCs, artifact abd pain, vomiting/diarrhea, h/o CAD: -reports same sx's at time of 2004 [facility] when had CABG, states had DC then. insulin-dep't diabetic -afebrile. WBC, lipase, lactate, LFTs WNL. CT abd/pelvis with no acute process. abdomen is non-tender. -sx's sound most consistent with GI etiology with strong gas/bloating component , ? component of DM gastroparesis. -however must exclude UA/ACS. -ECG non-ischemic, nonsp ST-T ? LVH related (cardiomegaly noted on CXR). -troponin trend fairly flat, indeterminate range (0.02-0.09-0.12-0.08) -pt is hi risk for ROGER from cath (GFR <20, DM, elderly) -for noninvasive ischemia eval (MPI) saturday -mult prior stents with ASA allergy, on plavix--details of stents not available- ->cont plavix, home anti-anginals (metoprolol, iso mononitrate) -on simva 40 at home--will change to atorva 80 while here for possibility of ACS HTN: -remains uncontrolled at times, severe at night -hydralazine short half life requires at least bid-tid dosing--likely losing am dose effect by PM hence bp to 190 -change hydral 100 qd to 50 bid, observe bp trend -cont remainder of home meds same CKD: -no baseline data available -bun/creat 89/3.1-->3.5. -observe trend -renal input appreciated: acute kidney injury, nephrotic range proteinuria-- holding thiazide, ARB anemia: -hgb 10, no prior baseline -trend labs
[2019-01-11 08:56] LABS: ALBUMIN 3.2 g/dl (3.4-5.0); TOT PROT 6.8 g/dl (6.4-8.2)
--- NOTE | 2019-01-11 08:58 | CONSULT ---
Consult - text type - Consultation Consultation Note: Renal consult for ELEAZAR This is a 78 year old woman with history of of CAD s/p CABG, Hypertension, DM on insulin who presented with complaints of Abd pain with N/V and found to have Cr of 3.1. No prior Cr in records. Pt seen and examined at the bedside. Awake alert, reports no further N/V or diarrhea today. No fever or chills. Denies any sob. Was told in the past that her renal function was abnormal. Denies any flank pain, dysuira, frequency or urgency. Denies any NSAID use. No recent contrast exposure. Pt was on ARB/HCTZ/Lasix at home. Denies any skin rash. PMHx: as above Allergies: Aspirin Family Hx: NC Social Hx: No T/A/D ROS: as per HPI, all other pertinent ros negative Home Medications Medication Instructions Recorded Clopidogrel Bisulfate [Clopidogrel] 75 mg PO DAILY 01/10/19 Doxazosin Mesylate [Cardura -] 2 mg PO DAILY 01/10/19 Famotidine 20 mg PO DAILY 01/10/19 Furosemide [Lasix] 20 mg PO DAILY 01/10/19 Hydralazine HCl 100 mg PO DAILY 01/10/19 Hydrochlorothiazide 25 mg PO DAILY 01/10/19 Insulin NPH Hum/Reg Insulin Hm 15 unit SQ BID 01/10/19 [Humulin 70-30 Vial] Irbesartan 300 mg PO DAILY 01/10/19 Isosorbide Mononitrate [Isosorbide 30 mg PO DAILY 01/10/19 Mononitrate ER] Latanoprost 0.005% Eye Drops 1 drop OU HS 01/10/19 [Xalatan 0.005% Eye Drops -] Levothyroxine [Synthroid -] 50 mcg PO DAILY 01/10/19 Metoprolol Tartrate 50 mg PO BID 01/10/19 Multivitamin [One-Daily 1 each PO DAILY 01/10/19 Multi-Vitamin] Nifedipine [Nifedipine ER] 30 mg PO DAILY 01/10/19 Ranitidine HCl 300 mg PO PRN PRN 01/10/19 Simvastatin [Zocor -] 40 mg PO HS 01/10/19 Sumatriptan Succinate [Imitrex -] 50 mg PO DAILY 01/10/19 Vital Signs Temperature 97.6 F 01/11/19 06:00 Pulse Rate 79 01/11/19 06:00 Respiratory Rate 17 01/11/19 08:00 Blood Pressure 139/75 01/11/19 06:00 O2 Sat by Pulse Oximetry (%) 100 01/11/19 08:00 Intake & Output 01/08/19 01/09/19 01/10/19 01/11/19 23:59 23:59 23:59 23:59 Intake Total 120 151 Balance 120 151 Weight 60.781 kg NAD awake and alert neck supple RRR CTA soft NT/ND no LE edema no bladder distension CBC, BMP 01/11/19 05:52 01/11/19 05:52 Laboratory Tests 01/10/19 01/11/19 04:01 05:52 BUN 89.9 H 84.0 H Creatinine 3.1 H 3.5 H Calcium 8.7 Phosphorus 4.5 Magnesium 2.4 Albumin 3.2 L Current Medications Atorvastatin Calcium (Lipitor -) 80 mg PO HS [facility] Last Admin: 01/10/19 22:30 Dose: 80 mg Clopidogrel Bisulfate (Plavix -) 75 mg PO DAILY [facility] Last Admin: 01/10/19 12:54 Dose: 75 mg Heparin Sodium (Porcine) (Heparin -) 1,000 unit IVPUSH PRN PRN PRN Reason: Heparin Heparin Sodium (Porcine) (Heparin -) 5,000 unit IVPUSH PRN PRN PRN Reason: Heparin Hydralazine HCl (Apresoline -) 50 mg PO BID [facility] Hydrochlorothiazide (Hctz -) 25 mg PO DAILY [facility] Last Admin: 01/10/19 11:00 Dose: 25 mg Heparin Sodium (Porcine) 25, (000 unit/ Sodium Chloride) 500 mls @ 16 mls/hr IV TITR [facility]; Protocol Last Titration: 01/11/19 03:05 Dose: 650 unit/hr, 13 mls/hr Insulin Aspart (Novolog Vial Sliding Scale -) 1 vial SQ ACHS [facility]; Protocol Last Admin: 01/11/19 06:55 Dose: Not Given Isosorbide Mononitrate (Imdur -) 30 mg PO DAILY [facility] Latanoprost (Xalatan 0.005% Eye Drops -) 1 drop OU HS [facility] Last Admin: 01/10/19 23:55 Dose: Not Given Levothyroxine Sodium (Synthroid -) 50 mcg PO DAILY@0700 [facility] Last Admin: 01/11/19 06:55 Dose: 50 mcg Losartan Potassium (Cozaar -) 100 mg PO DAILY [facility] Last Admin: 01/10/19 11:00 Dose: 100 mg Metoprolol Tartrate (Lopressor -) 50 mg PO BID [facility] Last Admin: 01/10/19 22:30 Dose: 50 mg Nifedipine (Procardia Xl -) 60 mg PO DAILY [facility] Last Admin: 01/10/19 11:00 Dose: 60 mg Ranitidine HCl (Zantac -) 150 mg PO DAILY [facility] Last Admin: 01/10/19 11:00 Dose: 150 mg Sumatriptan Succinate (Imitrex -) 50 mg PO DAILY PRN PRN Reason: HEADACHE 78 year old woman with history of of CAD s/p CABG, Hypertension, DM on insulin who presented with complaints of Abd pain with N/V and found to have Cr of 3.1. #Acute kidney injury likely due to ATN in setting of ARB/diuretics and hypovolemia vs. AIN #Nausea/Vomiting with Abd pain #CAD s/p CABG #IDDM Urine studies consistent with tubular injury. Urine Protein to Cr ratio is 4.1 ( nephrotic range) hold diuretics and ARB for now Aggressive IVf hydration with isotonic IVF Check BRUCE, SPEP given nephrotic range proteinuria and anemia Check Hgb A1C continue supportive care Cardiology follow up Thank you Wm Oseguera DO
[2019-01-11 09:04] LABS: BILIRUBIN,TOTAL 0.3 mg/dL (0.2-1); CALCIUM 8.7 mg/dL (8.5-10.1); POTASSIUM 4.5 mmol/L (3.5-5.1)
[2019-01-11] MEDS ORDERED: PT OWN MED DRAWER 7, Y5N ONE (09:16)
[2019-01-11 09:21] LABS: CREATININE 3.5 mg/dL (0.55-1.3); MAGNESIUM 2.4 mg/dL (1.8-2.4); PHOSPHOROUS 4.5 mg/dL (2.5-4.9)
[2019-01-11] MEDS: NIFEdipine E.R 60 MG TABLET (UD) PO SCH (09:21)
[2019-01-11] MEDS: METOPROLOL TARTRATE 50 MG TABLET (FP) PO SCH ×2 (09:21→21:07)
[2019-01-11] MEDS: HYDROCHLOROTHIAZIDE 25 MG TABLET (FP) PO SCH (09:22)
[2019-01-11] MEDS: CLOPIDOGREL BISULFATE 75 MG TABLET (FP) PO SCH (09:22)
[2019-01-11] MEDS: ISOSORBIDE MONONITRATE 30 MG TAB.SR.24H (FP) PO SCH (09:22)
[2019-01-11] MEDS: RANITIDINE HCL 150 MG TABLET (FP) PO SCH (09:22)
[2019-01-11] MEDS ORDERED: SUMAtriptan SUCCINATE 50 MG TABLET PO PRN (10:00)
[2019-01-11] MEDS ORDERED: hydrALAZINE HCL 50 MG TABLET (FP) PO SCH (10:00)
--- NOTE | 2019-01-11 11:37 | EKG ---
Test Reason : Blood Pressure : / mmHG Vent. Rate : 102 BPM Atrial Rate : 102 BPM P-R Int : 186 ms QRS Dur : 088 ms QT Int : 346 ms P-R-T Axes : 063 025 110 degrees QTc Int : 450 ms SINUS TACHYCARDIA T WAVE ABNORMALITY, CONSIDER LATERAL ISCHEMIA ABNORMAL ECG NO PREVIOUS ECGS AVAILABLE Confirmed by AMANDA DODGE, CHRISSIE ([id number]) on 01/11/2019 11:36:50 AM Referred By: Confirmed By:CHRISSIE PATEL MD
--- NOTE | 2019-01-11 11:37 | EKG ---
Test Reason : Blood Pressure : / mmHG Vent. Rate : 113 BPM Atrial Rate : 113 BPM P-R Int : 176 ms QRS Dur : 082 ms QT Int : 338 ms P-R-T Axes : 045 007 131 degrees QTc Int : 463 ms POOR DATA QUALITY, INTERPRETATION MAY BE ADVERSELY AFFECTED SINUS TACHYCARDIA T WAVE ABNORMALITY, CONSIDER LATERAL ISCHEMIA ABNORMAL ECG WHEN COMPARED WITH ECG OF 10-JAN-2019 04:07, NO SIGNIFICANT CHANGE WAS FOUND Confirmed by CHRISSIE PATEL MD ([id number]) on 01/11/2019 11:36:42 AM Referred By: Confirmed By:CHRISSIE PATEL MD
[2019-01-11] MEDS: SODIUM CHLORIDE 1,000 ML IV SCH (11:53)
--- NOTE | 2019-01-11 14:01 | PN ---
Progress Note (short form) - Note Progress Note: SUBJECTIVE: Episode of epigastric pain resolved. No nausea/vomiting/ lightheadedness. Tolerating oral intake. OBJECTIVE: Afebrile, Hemodynamically Stable. AAO x 3. Last Vital Signs Temp Pulse Resp BP Pulse Ox 97.6 F 79 17 139/75 100 01/11/19 06:00 01/11/19 06:00 01/11/19 08:00 01/11/19 06:00 01/11/19 08:00 Heart - S1, S2, RRR Lungs - clear to auscultation Abdomen - Soft, non-tender. Bowel Sounds normal. Extremities - No calf tenderness. No edema. Neuro - AAO x 3. Tone/Power normal all 4 extremities. Laboratory Results - last 24 hr 01/10/19 01/10/19 01/10/19 16:45 18:05 20:32 WBC RBC Hgb Hct MCV MCH MCHC RDW Plt Count MPV Absolute Neuts (auto) Neutrophils % Lymphocytes % Monocytes % Eosinophils % Basophils % Nucleated RBC % PTT (Actin FS) Sodium Potassium Chloride Carbon Dioxide Anion Gap BUN Creatinine Est GFR (CKD-EPI)AfAm Est GFR (CKD-EPI)NonAf POC Glucometer 128 Random Glucose Serum Osmolality Calcium Phosphorus Magnesium Iron TIBC Iron Saturation Unsaturated IBC Ferritin Total Bilirubin AST ALT Alkaline Phosphatase LD Total Troponin I 0.12 H Total Protein Albumin TSH Urine Osmolality Ur Random Creatinine U Random Total Protein Ur Random Sodium 57 Ur Random Phosphorus Ur Random Urea Nitrogn Urine Creatinine Protein/Creatinin Ratio 01/10/19 01/10/19 01/10/19 20:32 20:32 20:32 WBC RBC Hgb Hct MCV MCH MCHC RDW Plt Count MPV Absolute Neuts (auto) Neutrophils % Lymphocytes % Monocytes % Eosinophils % Basophils % Nucleated RBC % PTT (Actin FS) Sodium Potassium Chloride Carbon Dioxide Anion Gap BUN Creatinine Est GFR (CKD-EPI)AfAm Est GFR (CKD-EPI)NonAf POC Glucometer Random Glucose Serum Osmolality Calcium Phosphorus Magnesium Iron TIBC Iron Saturation Unsaturated IBC Ferritin Total Bilirubin AST ALT Alkaline Phosphatase LD Total Troponin I Total Protein Albumin TSH Urine Osmolality 272 L Ur Random Creatinine 18.0 L U Random Total Protein 86.7 H Ur Random Sodium Ur Random Phosphorus 7.5 Ur Random Urea Nitrogn 299 L Urine Creatinine 18.0 L Protein/Creatinin Ratio 4.810 08/01/10/19 01/11/19 22:25 22:25 01:10 WBC RBC Hgb Hct MCV MCH MCHC RDW Plt Count MPV Absolute Neuts (auto) Neutrophils % Lymphocytes % Monocytes % Eosinophils % Basophils % Nucleated RBC % PTT (Actin FS) 104.8 H Sodium Potassium Chloride Carbon Dioxide Anion Gap BUN Creatinine Est GFR (CKD-EPI)AfAm Est GFR (CKD-EPI)NonAf POC Glucometer 182 Random Glucose Serum Osmolality Calcium Phosphorus Magnesium Iron TIBC Iron Saturation Unsaturated IBC Ferritin Total Bilirubin AST ALT Alkaline Phosphatase LD Total Troponin I 0.08 H Total Protein Albumin TSH Urine Osmolality Ur Random Creatinine U Random Total Protein Ur Random Sodium Ur Random Phosphorus Ur Random Urea Nitrogn Urine Creatinine Protein/Creatinin Ratio 01/11/19 01/11/19 01/11/19 05:52 05:52 05:52 WBC 6.4 RBC 3.46 L Hgb 10.3 L Hct 30.1 L MCV 87.1 MCH 29.9 MCHC 34.3 RDW 13.2 Plt Count 179 MPV 9.6 Absolute Neuts (auto) 3.1 Neutrophils % 48.1 D Lymphocytes % 34.5 D Monocytes % 8.4 Eosinophils % 8.4 H D Basophils % 0.6 Nucleated RBC % 0 PTT (Actin FS) Sodium 139 Potassium 4.5 Chloride 106 Carbon Dioxide 22 Anion Gap 11 BUN 84.0 H Creatinine 3.5 H Est GFR (CKD-EPI)AfAm 13.65 Est GFR (CKD-EPI)NonAf 11.77 POC Glucometer Random Glucose 127 H Serum Osmolality 318 H Calcium 8.7 Phosphorus 4.5 Magnesium 2.4 Iron 122 TIBC 189 L Iron Saturation 64 H Unsaturated IBC 67 L Ferritin 154.9 Total Bilirubin 0.3 AST 19 ALT 17 Alkaline Phosphatase 61 LD Total 218 Troponin I 0.07 H Total Protein 6.8 Albumin 3.2 L TSH 4.60 H Urine Osmolality Ur Random Creatinine U Random Total Protein Ur Random Sodium Ur Random Phosphorus Ur Random Urea Nitrogn Urine Creatinine Protein/Creatinin Ratio 01/11/19 01/11/19 01/11/19 06:29 11:04 11:35 WBC RBC Hgb Hct MCV MCH MCHC RDW Plt Count MPV Absolute Neuts (auto) Neutrophils % Lymphocytes % Monocytes % Eosinophils % Basophils % Nucleated RBC % PTT (Actin FS) 92.3 H Sodium Potassium Chloride Carbon Dioxide Anion Gap BUN Creatinine Est GFR (CKD-EPI)AfAm Est GFR (CKD-EPI)NonAf POC Glucometer 139 260 Random Glucose Serum Osmolality Calcium Phosphorus Magnesium Iron TIBC Iron Saturation Unsaturated IBC Ferritin Total Bilirubin AST ALT Alkaline Phosphatase LD Total Troponin I Total Protein Albumin TSH Urine Osmolality Ur Random Creatinine U Random Total Protein Ur Random Sodium Ur Random Phosphorus Ur Random Urea Nitrogn Urine Creatinine Protein/Creatinin Ratio Current Medications Generic Name Dose Route Start Last Admin Trade Name Freq PRN Reason Stop Dose Admin Atorvastatin Calcium 80 mg 01/10/19 22:00 01/10/19 22:30 Lipitor - PO 80 mg HS NISHA Administration Clopidogrel Bisulfate 75 mg 01/10/19 10:00 01/11/19 09:22 Plavix - PO 75 mg DAILY NISHA Administration Heparin Sodium (Porcine) 1,000 unit 01/10/19 18:02 Heparin - IVPUSH PRN PRN Heparin Heparin Sodium (Porcine) 5,000 unit 01/10/19 18:02 Heparin - IVPUSH PRN PRN Heparin Heparin Sodium (Porcine) 25, 500 mls @ 16 mls/hr 01/10/19 18:15 01/11/19 13: 00 000 unit/ Sodium Chloride IV 550 unit/hr TITR NISHA 11 mls/hr Titration Protocol 800 UNIT/HR Sodium Chloride 1,000 mls @ 125 mls/hr 01/11/19 10:45 01/11/19 11:53 Normal Saline - IV 125 mls/hr ASDIR NISHA Administration Insulin Aspart 1 vial 01/10/19 11:00 01/11/19 11:54 Novolog Vial Sliding Scale - SQ 4 units ACHS NISHA Administration Protocol Isosorbide Mononitrate 30 mg 01/11/19 10:00 01/11/19 09:22 Imdur - PO 30 mg DAILY NISHA Administration Latanoprost 1 drop 01/10/19 22:00 01/10/19 23:55 Xalatan 0.005% Eye Drops - OU Not Given HS NISHA Levothyroxine Sodium 50 mcg 01/11/19 07:00 01/11/19 06:55 Synthroid - PO 50 mcg DAILY@0700 NISHA Administration Metoprolol Tartrate 50 mg 01/10/19 10:00 01/11/19 09:21 Lopressor - PO 50 mg BID NISHA Administration Nifedipine 60 mg 01/10/19 10:00 08/18/19 09:21 Procardia Xl - PO 60 mg DAILY NISHA Administration Ranitidine HCl 150 mg 01/10/19 10:00 01/11/19 09:22 Zantac - PO 150 mg DAILY NISHA Administration Sumatriptan Succinate 50 mg 01/11/19 10:00 Imitrex - PO DAILY PRN HEADACHE Home Medications Medication Instructions Recorded Clopidogrel Bisulfate [Clopidogrel] 75 mg PO DAILY 01/10/19 Famotidine 20 mg PO DAILY 01/10/19 Hydralazine HCl 100 mg PO DAILY 01/10/19 Hydrochlorothiazide 25 mg PO DAILY 01/10/19 Insulin NPH Hum/Reg Insulin Hm 100 unit SQ DAILY 01/10/19 [Humulin 70-30 Vial] Irbesartan 300 mg PO DAILY 01/10/19 Isosorbide Mononitrate [Isosorbide 30 mg PO DAILY 01/10/19 Mononitrate ER] Latanoprost 0.005% Eye Drops 1 drop OU HS 01/10/19 [Xalatan 0.005% Eye Drops -] Metoprolol Tartrate 50 mg PO BID 01/10/19 Nifedipine [Nifedipine ER] 60 mg PO DAILY 01/10/19 Ranitidine HCl 300 mg PO PRN PRN 01/10/19 Sumatriptan Succinate [Imitrex -] 50 mg PO DAILY 01/10/19 ASSESSMENT AND PLAN: 78 year old female with history of HTN, HLD, DM 2, CAD (s/p CABG 2004/PCI 2006) , DJD Spine s/p Spinal Sx, presents with rapid onset epigastric discomfort with associated vomiting x 1/bloating. No palpitations/dyspnea/diaphoresis/ lightheadedness. 1. Epigastric Pain, possible ACS on background CAD s/p CABG Rising TropI, TnI max 0.12 ECG - no acute ischemic changes. CT A/P - non-obstructing renal stones, diverticulosis, multilevel DJD L spine s/ p Sx. No acute intra-abdominal process. Currently on Heparin drip. Continue Clopidogrel, BB, ISMN. (ASA Allergy) Cardiology following - for NPI saturday NTG PRN if any further CP 2. HTN - Continue ISMN, Metoprolol, Nifedipine. Hydralazine dosing split to BID. Irbesartan held due to ELEAZAR. 3. HLD - on Statin. 4. DM 2 - Maintain on sliding scale. 5. ELEAZAR - etiology not confirmed at this point. Nephrotic range proteinuria. Diuretic/ARB held, IV hydration intensified. No obstruction on imaging. Nephrology following. DVT Px - Heparin SQ Visit type - Emergency Visit Emergency Visit: Yes ED Registration Date: 01/10/19 Care time: The patient presented to the Emergency Department on the above date and was hospitalized for further evaluation of their emergent condition. - New Patient This patient is new to me today: No - Critical Care Critical Care patient: No - Discharge Referral Referred to [facility] No
[2019-01-11] MEDS: LATANOPROST 0.005% OPHTH SOLN 2.5ML BOTTLE OU SCH (21:07)
[2019-01-11] MEDS: ATORVASTATIN CA 80 MG TABLET (FP) PO SCH (21:07)
[2019-01-11] MEDS ORDERED: ACETAMINOPHEN 325 MG TABLET (FP) PO ONE (23:12)
[2019-01-11] MEDS ORDERED: MAG HYDROX/AL HYDROX/SIMETH 30 ML UNIT-DOSE CUP PO ONE (23:31)
[2019-01-12] MEDS: HEPARIN - 25,000 UNIT in SODIUM CHLORIDE 495 ML IV SCH (00:47)
[2019-01-12] MEDS: LEVOTHYROXINE NA 50 MCG TABLET (FP) PO SCH (06:22)
[2019-01-12] MEDS: INSULIN SLIDING SCALE (NOVOLOG) 1 VIAL SQ SCH ×4 (06:22→21:24)
[2019-01-12] MEDS: NIFEdipine E.R 60 MG TABLET (UD) PO SCH ×2 (08:07→13:43)
[2019-01-12 08:09] LABS: HEMATOCRIT 28.9 % (32.4-45.2); HEMOGLOBIN 9.9 GM/dL (10.7-15.3); MCH 29.9 pg (25.7-33.7); MCHC 34.2 g/dl (32.0-36.0); MEAN CELL VOLUME 87.4 fl (80-96); MEAN PLT VOLUME 9.7 fl (7.5-11.1); PLATELET COUNT 168 K/MM3 (134-434); RBC 3.31 M/mm3 (3.60-5.2); RDW 13.3 % (11.6-15.6); WHITE BLOOD COUNT 5.9 K/mm3 (4.0-10.0)
[2019-01-12 08:48] LABS: BLOOD UREA NITROGEN 79.2 mg/dL (7-18); CALCIUM 8.5 mg/dL (8.5-10.1); CREATININE 3.1 mg/dL (0.55-1.3); POTASSIUM 4.2 mmol/L (3.5-5.1)
[2019-01-12] MEDS ORDERED: REGADENOSON 0.4 MG/5 ML PRE-FILLED SYRINGE IVPUSH ONE ×2 (09:56→10:15)
[2019-01-12] MEDS: SODIUM CHLORIDE 1,000 ML IV SCH (10:00)
--- NOTE | 2019-01-12 12:44 | PN ---
Teaching Attending Note Name of Resident: Ken Lozano ATTENDING PHYSICIAN STATEMENT I saw and evaluated the patient. I reviewed the resident's note and discussed the case with the resident. I agree with the resident's findings and plan as documented. SUBJECTIVE: Epigastric pain resolved. No nausea/vomiting/lightheadedness. no CP/ palps. OBJECTIVE: Afebrile, Hemodynamically Stable. AAO x 3. Last Vital Signs Temp Pulse Resp BP Pulse Ox 97.8 F 90 18 166/83 100 01/12/19 07:52 01/12/19 07:52 01/12/19 07:52 01/12/19 07:52 01/12/19 07:49 Heart - S1, S2, RRR Lungs - clear to auscultation Abdomen - Soft, non-tender. Bowel Sounds normal. Extremities - No calf tenderness. No edema. Neuro - AAO x 3. Tone/Power normal all 4 extremities. Laboratory Results - last 24 hr 01/11/19 01/11/19 01/11/19 17:11 19:00 21:10 WBC RBC Hgb Hct MCV MCH MCHC RDW Plt Count MPV PTT (Actin FS) 61.8 H Sodium Potassium Chloride Carbon Dioxide Anion Gap BUN Creatinine Est GFR (CKD-EPI)AfAm Est GFR (CKD-EPI)NonAf POC Glucometer 176 182 Random Glucose Calcium 01/12/19 01/12/19 01/12/19 05:59 06:45 06:45 WBC 5.9 RBC 3.31 L Hgb 9.9 L Hct 28.9 L MCV 87.4 MCH 29.9 MCHC 34.2 RDW 13.3 Plt Count 168 MPV 9.7 PTT (Actin FS) 52.5 H Sodium Potassium Chloride Carbon Dioxide Anion Gap BUN Creatinine Est GFR (CKD-EPI)AfAm Est GFR (CKD-EPI)NonAf POC Glucometer 124 Random Glucose Calcium 01/12/19 06:45 WBC RBC Hgb Hct MCV MCH MCHC RDW Plt Count MPV PTT (Actin FS) Sodium 142 Potassium 4.2 Chloride 111 H Carbon Dioxide 22 Anion Gap 9 BUN 79.2 H Creatinine 3.1 H Est GFR (CKD-EPI)AfAm 15.80 Est GFR (CKD-EPI)NonAf 13.63 POC Glucometer Random Glucose 120 H Calcium 8.5 Current Medications Generic Name Dose Route Start Last Admin Trade Name Freq PRN Reason Stop Dose Admin Atorvastatin Calcium 80 mg 01/10/19 22:00 01/11/19 21:07 Lipitor - PO 80 mg HS NISHA Administration Clopidogrel Bisulfate 75 mg 01/10/19 10:00 01/11/19 09:22 Plavix - PO 75 mg DAILY NISHA Administration Heparin Sodium (Porcine) 1,000 unit 01/10/19 18:02 Heparin - IVPUSH PRN PRN Heparin Heparin Sodium (Porcine) 5,000 unit 01/10/19 18:02 Heparin - IVPUSH PRN PRN Heparin Heparin Sodium (Porcine) 25, 500 mls @ 16 mls/hr 01/10/19 18:15 01/12/19 00: 47 000 unit/ Sodium Chloride IV Not Given TITR [facility] Protocol 800 UNIT/HR Sodium Chloride 1,000 mls @ 125 mls/hr 01/11/19 10:45 01/11/19 11:53 Normal Saline - IV 125 mls/hr ASDIR NISHA Administration Insulin Aspart 1 vial 01/10/19 11:00 01/12/19 12:09 Novolog Vial Sliding Scale - SQ Not Given ACHS [facility] Protocol Isosorbide Mononitrate 30 mg 01/11/19 10:00 01/11/19 09:22 Imdur - PO 30 mg DAILY NISHA Administration Latanoprost 1 drop 01/10/19 22:00 01/11/19 21:07 Xalatan 0.005% Eye Drops - OU 1 drop HS NISHA Administration Levothyroxine Sodium 50 mcg 01/11/19 07:00 01/12/19 06:22 Synthroid - PO 50 mcg DAILY@0700 NSIHA Administration Metoprolol Tartrate 50 mg 01/10/19 10:00 01/11/19 21:07 Lopressor - PO 50 mg BID NISHA Administration Nifedipine 60 mg 01/10/19 10:00 01/12/19 08:07 Procardia Xl - PO 60 mg DAILY NISHA Administration Ranitidine HCl 150 mg 01/10/19 10:00 01/11/19 09:22 Zantac - PO 150 mg DAILY NISHA Administration Sumatriptan Succinate 50 mg 01/11/19 10:00 Imitrex - PO DAILY PRN HEADACHE Home Medications Medication Instructions Recorded Clopidogrel Bisulfate [Clopidogrel] 75 mg PO DAILY 01/10/19 Famotidine 20 mg PO DAILY 01/10/19 Hydralazine HCl 100 mg PO DAILY 01/10/19 Hydrochlorothiazide 25 mg PO DAILY 01/10/19 Insulin NPH Hum/Reg Insulin Hm 100 unit SQ DAILY 01/10/19 [Humulin 70-30 Vial] Irbesartan 300 mg PO DAILY 01/10/19 Isosorbide Mononitrate [Isosorbide 30 mg PO DAILY 01/10/19 Mononitrate ER] Latanoprost 0.005% Eye Drops 1 drop OU HS 01/10/19 [Xalatan 0.005% Eye Drops -] Metoprolol Tartrate 50 mg PO BID 01/10/19 Nifedipine [Nifedipine ER] 60 mg PO DAILY 01/10/19 Ranitidine HCl 300 mg PO PRN PRN 01/10/19 Sumatriptan Succinate [Imitrex -] 50 mg PO DAILY 01/10/19 ASSESSMENT AND PLAN: 78 year old female with history of HTN, HLD, DM 2, CAD (s/p CABG 2004/PCI 2006) , DJD Spine s/p Spinal Sx, Migraine, Hypothyroidism, presents with rapid onset epigastric discomfort with associated vomiting x 1/bloating. No palpitations/ dyspnea/diaphoresis/lightheadedness. 1. Epigastric Pain, possible ACS on background CAD s/p CABG TnI max 0.12 ECG - no acute ischemic changes. CT A/P - non-obstructing renal stones, diverticulosis, multilevel DJD L spine s/ p Sx. No acute intra-abdominal process. Currently on Heparin drip. Continue Clopidogrel, BB, ISMN. (ASA Allergy) Cardiology following - for NPI today NTG PRN if any further CP 2. ELEAZAR - etiology unclear, ATN vs AIN. Nephrotic range proteinuria. Diuretic/ ARB held, IV hydration intensified. No obstruction on imaging. Nephrology following. 3. HTN - Continue ISMN, Metoprolol, Nifedipine. Hydralazine dosing split to BID. Irbesartan held due to ELEAZAR. 4. HLD - on Statin. 5. DM 2 - Maintain on sliding scale. 6. Hx Migraine - Imitrex prn 7. Hypothyroidism - TSH 4.6, on Levothyroxine. Will continue home dose with repeat TSH in 3-4 weeks. DVT Px - on Heparin drip
--- NOTE | 2019-01-12 12:54 | ECHO ---
Name: COURTNEY COUGHLIN Exam:Adult Echocardiogram Study Date: 01/12/2019 08:32 AM Age: 78 yrs Reason For Study: acs Height: 62 in Weight: 130 lb BSA: 1.6 m2 MMode/2D Measurements & Calculations IVSd: 1.1 cm Ao root diam: 2.8 cm LVIDd: 4.4 cm LA dimension: 3.3 cm LVIDs: 2.7 cm LVPWd: 0.99 cm EDV(Teich): 87.7 ml LVOT diam: 2.0 cm ESV(Teich): 28.3 ml LAV (MOD-bp): 50.7 ml Doppler Measurements & Calculations MV E max quinton: 120.0 cm/sec Ao V2 max: 187.3 cm/sec MV A max quinton: 137.1 cm/sec Ao max P.0 mmHg MV E/A: 0.88 MV dec time: 0.06 sec MUKESH(V,D): 1.3 cm2 LV V1 max P.4 mmHg MR max quinton: 550.6 cm/sec LV V1 max: 78.1 cm/sec MR max P.4 mmHg TR max quinton: 228.7 cm/sec PA V2 max: 82.8 cm/sec TR max P.0 mmHg PA max P.7 mmHg Med Peak E' Quinton: 11.2 cm/sec PI Vmax: 275.5 cm/sec Med E/e': 10.7 Lat Peak E' Quinton: 9.4 cm/sec Lat E/e': 12.8 Procedure The study was technically good with many images being of high quality. Left Ventricle The left ventricular size, thickness and function are normal. Ejection Fraction = 60-65%. Grade I pattie stolic dysfunction, (abnormal relaxation pattern). Right Ventricle The right ventricle is normal in size and function. Atria Normal left and right atrial size and function. Mitral Valve There is mild mitral annular calcification. The mitral valve leaflets appear thickened, but open well . There is mild mitral regurgitation. Tricuspid Valve The tricuspid valve is not well visualized, but is grossly normal. There is mild tricuspid regurgitat ion. There was insufficient TR detected to calculate RV systolic pressure. Aortic Valve The aortic valve is normal in structure and function. The aortic valve opens well. The aortic valve i s trileaflet. No aortic regurgitation is present. Pulmonic Valve The pulmonic valve is not well visualized. Trace to mild pulmonic valvular regurgitation. Great Vessels The aortic root is normal size. Pericardium/Pleura There is no pericardial effusion. Interpretation Summary There is no comparison study available. The left ventricular size, thickness and function are normal The right ventricle is normal in size and function. Ejection Fraction = 60-65%. There is mild mitral regurgitation. There is mild tricuspid regurgitation. Trace to mild pulmonic valvular regurgitation. Trung Sandy MD 01/12/2019 12:53 PM
[2019-01-12] MEDS: ISOSORBIDE MONONITRATE 30 MG TAB.SR.24H (FP) PO SCH (13:36)
[2019-01-12] MEDS: METOPROLOL TARTRATE 50 MG TABLET (FP) PO SCH ×2 (13:36→21:24)
[2019-01-12] MEDS: RANITIDINE HCL 150 MG TABLET (FP) PO SCH (13:36)
[2019-01-12] MEDS: CLOPIDOGREL BISULFATE 75 MG TABLET (FP) PO SCH (13:36)
--- NOTE | 2019-01-12 14:20 | PN ---
Physical Exam: SUBJECTIVE: 78 y/o F w PMH HTN, HLD, DM, hypothyroidism, migraine, CAD s/p CABG 2004 and PCI 2006, DJD, and spinal stenosis whom presented w epigastric discomfort and emesis, seen at bedside today. She was admtted to r/o ACS and has since has a down trending Trop w max 0.12 and neg EKG. She offers no complaints today. Pt states her abdominal/epigastric pain is no longer present. She denies lightheadedness, CP, palpitations, chills, headache, dizziness, SOB, abdominal pain, and NVFD. Pt reports that she is visiting [place] and normally sees all her doctors in [place], including a PCP and a program clerk. OBJECTIVE: Vital Signs Temp Pulse Resp BP Pulse Ox 97.8 F 90 18 166/83 100 01/12/19 07:52 01/12/19 07:52 01/12/19 07:52 01/12/19 07:52 01/12/19 07:49 GENERAL: The patient is awake, alert, and fully oriented, in no acute distress. Syriac speaking only. HEAD: Normocephalic, atraumatic. EYES: LAURO, EOMI, sclera anicteric, conjunctiva clear. No ptosis. ENT: Ears normal, nares patent, oropharynx clear without exudates, moist mucous membranes. NECK: Trachea midline, full range of motion, supple. LUNGS: Breath sounds equal, clear to auscultation bilaterally, no wheezes, no crackles, no accessory muscle use. HEART: Regular rate and rhythm, S1, S2 without murmur, rub or gallop. ABDOMEN: Soft, nontender, nondistended, normoactive bowel sounds, no guarding, no rebound, no hepatosplenomegaly, no masses. EXTREMITIES: 2+ pulses, warm, well-perfused, no edema. NEUROLOGICAL: Cranial nerves II through XII grossly intact. Normal speech, gait not observed. PSYCH: Normal mood, normal affect. SKIN: Warm, dry, normal turgor, no rashes or lesions noted Laboratory Results - last 24 hr 01/11/19 01/11/19 01/11/19 05:52 17:11 19:00 WBC RBC Hgb Hct MCV MCH MCHC RDW Plt Count MPV Haptoglobin 135 PTT (Actin FS) 61.8 H Sodium Potassium Chloride Carbon Dioxide Anion Gap BUN Creatinine Est GFR (CKD-EPI)AfAm Est GFR (CKD-EPI)NonAf POC Glucometer 176 Random Glucose Calcium 01/11/19 01/12/19 01/12/19 21:10 05:59 06:45 WBC 5.9 RBC 3.31 L Hgb 9.9 L Hct 28.9 L MCV 87.4 MCH 29.9 MCHC 34.2 RDW 13.3 Plt Count 168 MPV 9.7 Haptoglobin PTT (Actin FS) Sodium Potassium Chloride Carbon Dioxide Anion Gap BUN Creatinine Est GFR (CKD-EPI)AfAm Est GFR (CKD-EPI)NonAf POC Glucometer 182 124 Random Glucose Calcium 01/12/19 01/12/19 01/12/19 06:45 06:45 12:48 WBC RBC Hgb Hct MCV MCH MCHC RDW Plt Count MPV Haptoglobin PTT (Actin FS) 52.5 H Sodium 142 Potassium 4.2 Chloride 111 H Carbon Dioxide 22 Anion Gap 9 BUN 79.2 H Creatinine 3.1 H Est GFR (CKD-EPI)AfAm 15.80 Est GFR (CKD-EPI)NonAf 13.63 POC Glucometer 200 Random Glucose 120 H Calcium 8.5 Active Medications Atorvastatin Calcium (Lipitor -) 80 mg PO HS [facility] Last Admin: 01/11/19 21:07 Dose: 80 mg Clopidogrel Bisulfate (Plavix -) 75 mg PO DAILY [facility] Last Admin: 01/12/19 13:36 Dose: 75 mg Heparin Sodium (Porcine) (Heparin -) 1,000 unit IVPUSH PRN PRN PRN Reason: Heparin Heparin Sodium (Porcine) (Heparin -) 5,000 unit IVPUSH PRN PRN PRN Reason: Heparin Heparin Sodium (Porcine) 25, (000 unit/ Sodium Chloride) 500 mls @ 16 mls/hr IV TITR NISHA; Protocol Last Admin: 01/12/19 00:47 Dose: Not Given Sodium Chloride (Normal Saline -) 1,000 mls @ 125 mls/hr IV ASDIR [facility] Last Admin: 01/11/19 11:53 Dose: 125 mls/hr Insulin Aspart (Novolog Vial Sliding Scale -) 1 vial SQ ACHS [facility]; Protocol Last Admin: 01/12/19 12:09 Dose: Not Given Isosorbide Mononitrate (Imdur -) 30 mg PO DAILY [facility] Last Admin: 01/12/19 13:36 Dose: 30 mg Latanoprost (Xalatan 0.005% Eye Drops -) 1 drop OU HS [facility] Last Admin: 01/11/19 21:07 Dose: 1 drop Levothyroxine Sodium (Synthroid -) 50 mcg PO DAILY@0700 [facility] Last Admin: 01/12/19 06:22 Dose: 50 mcg Metoprolol Tartrate (Lopressor -) 50 mg PO BID [facility] Last Admin: 01/12/19 13:36 Dose: 50 mg Nifedipine (Procardia Xl -) 60 mg PO DAILY [facility] Last Admin: 01/12/19 13:43 Dose: Not Given Ranitidine HCl (Zantac -) 150 mg PO DAILY [facility] Last Admin: 01/12/19 13:36 Dose: 150 mg Sumatriptan Succinate (Imitrex -) 50 mg PO DAILY PRN PRN Reason: HEADACHE ASSESSMENT/PLAN: 78 y/o F w PMH HTN, HLD, DM, CAD s/p CABG 2004 and PCI 2006, hypothyroidism, migraine, DJD, and spinal stenosis whom presented w epigastric discomfort and emesis, admitted to r/o ACS. # Possible ACS - GERD vs DM gastro/enteropathy - Troponins trending down from max 0.12 on 01.11.19AM - NEG ECG w no acute ischemic changes. - CT: non-obstructing renal stones, diverticulosis, multilevel DJD L spine s/p sx w no acute intra-abdominal process - Cont. clopidogrel, BB, ISMN (ASA Allergy) - NEG ECHO today - Cardiology on board (Dr. Pollock) # Possible ELEAZAR - ATN vs AIN - BUN/Cr today: 79.2/3.1 - POS: Nephrotic range proteinuria - Diuretic/ARB held - IV hydration - No obstruction on imaging - Nephrology on board (Dr. Oseguera) # HTN - Continue ISMN, metoprolol, nifedipine. - Hydralazine dosing split to BID - Irbesartan held due to ELEAZAR. # HLD - Cont. Lipitor 80 mg # DM - ISS # Migraine - Imitrex prn # Hypothyroidism - TSH 4.6 - Cont. levothyroxine - Repeat TSH in 3-4 weeks # F/E/N - NS - Cont. to monitor electrolytes - Diabetic/low sodium diet # DVT prophylaxis - Heparin # Disposition - Full code Ken Lozano MD Visit type - Emergency Visit Emergency Visit: No - New Patient This patient is new to me today: No - Critical Care Critical Care patient: No ATTENDING PHYSICIAN STATEMENT I saw and evaluated the patient. I reviewed the resident's note and discussed the case with the resident. I agree with the resident's findings and plan as documented. SUBJECTIVE: OBJECTIVE: ASSESSMENT AND PLAN:
--- NOTE | 2019-01-12 16:44 | PN ---
Progress Note (short form) - Note Progress Note: no cp, palps, dizziness, dyspnea Current Medications Atorvastatin Calcium (Lipitor -) 80 mg PO HS [facility] Last Admin: 01/11/19 21:07 Dose: 80 mg Clopidogrel Bisulfate (Plavix -) 75 mg PO DAILY [facility] Last Admin: 01/12/19 13:36 Dose: 75 mg Heparin Sodium (Porcine) (Heparin -) 1,000 unit IVPUSH PRN PRN PRN Reason: Heparin Heparin Sodium (Porcine) (Heparin -) 5,000 unit IVPUSH PRN PRN PRN Reason: Heparin Heparin Sodium (Porcine) 25, (000 unit/ Sodium Chloride) 500 mls @ 16 mls/hr IV TITR [facility]; Protocol Last Admin: 01/12/19 00:47 Dose: Not Given Sodium Chloride (Normal Saline -) 1,000 mls @ 125 mls/hr IV ASDIR [facility] Last Admin: 01/11/19 11:53 Dose: 125 mls/hr Insulin Aspart (Novolog Vial Sliding Scale -) 1 vial SQ ACHS [facility]; Protocol Last Admin: 01/12/19 12:09 Dose: Not Given Isosorbide Mononitrate (Imdur -) 30 mg PO DAILY [facility] Last Admin: 01/12/19 13:36 Dose: 30 mg Latanoprost (Xalatan 0.005% Eye Drops -) 1 drop OU HS [facility] Last Admin: 01/11/19 21:07 Dose: 1 drop Levothyroxine Sodium (Synthroid -) 50 mcg PO DAILY@0700 [facility] Last Admin: 01/12/19 06:22 Dose: 50 mcg Metoprolol Tartrate (Lopressor -) 50 mg PO BID [facility] Last Admin: 01/12/19 13:36 Dose: 50 mg Nifedipine (Procardia Xl -) 60 mg PO DAILY [facility] Last Admin: 01/12/19 13:43 Dose: Not Given Ranitidine HCl (Zantac -) 150 mg PO DAILY [facility] Last Admin: 01/12/19 13:36 Dose: 150 mg Sumatriptan Succinate (Imitrex -) 50 mg PO DAILY PRN PRN Reason: HEADACHE Vital Signs Period Temp Pulse Resp BP Sys/Cárdenas Pulse Ox Last 24 Hr 97.5 F-98.5 F 73-99 16-20 119-166/56-87 99-100 Constitutional: Yes: No Distress, Calm Eyes: No: Sclera Icterus HENT: No: Nasal Congestion Cardiovascular: Yes: Regular Rate and Rhythm, S1, S2, Other (PMI non diplaced). No: JVD, Gallop, Murmur Respiratory: Yes: CTA Bilaterally. No: Accessory Muscle Use, Rales, Wheezes Gastrointestinal: Yes: Normal Bowel Sounds, Soft. No: Tenderness Musculoskeletal: Yes: Other (No kyphosis) Extremities: No: Cold, Cyanosis Edema: No Integumentary: No: Jaundice Neurological: Yes: Alert, Oriented (x3) Psychiatric: No: Agitated Assessment/Plan ECG: sinus tach, normal axis/interv. no path q's. nonsp ST-T lateral leads (no prior) ECG #2: no signif change CXR: sternal sutures, prominent heart. clear lungs/pleura tele: NSR, APCs, artifact abd pain, vomiting/diarrhea, h/o CAD: -reports same sx's at time of 2004 [facility] when had CABG, states had OR then. insulin-dep't diabetic -afebrile. WBC, lipase, lactate, LFTs WNL. CT abd/pelvis with no acute process. abdomen is non-tender. -sx's sound most consistent with GI etiology with strong gas/bloating component , ? component of DM gastroparesis. -however must exclude UA/ACS. -ECG non-ischemic, nonsp ST-T ? LVH related (cardiomegaly noted on CXR). -troponin trend fairly flat, indeterminate range (0.02-0.09-0.12-0.08) -pt is hi risk for ROGER from cath (GFR <20, DM, elderly) -mult prior stents with ASA allergy, on plavix--details of stents not available- ->cont plavix, home anti-anginals (metoprolol, iso mononitrate) -on simva 40 at home--will change to atorva 80 while here for possibility of ACS - echo - nl LV function, mild MR, mild TR, unremarkable - mibi shows no ischemia, nl LV function - no further cardiac testing recommended, dc heparin gtt HTN: -remains uncontrolled at times, severe at night -hydralazine short half life requires at least bid-tid dosing--likely losing am dose effect by PM hence bp to 190 -changed hydral 100 qd to 50 bid, observe bp trend -cont remainder of home meds same - ARB held for ELEAZAR CKD: -no baseline data available -bun/creat 89/3.1-->3.5. -observe trend -renal input appreciated: acute kidney injury, nephrotic range proteinuria-- holding thiazide, ARB anemia: -hgb 10, no prior baseline -trend labs
[2019-01-12] MEDS: ATORVASTATIN CA 80 MG TABLET (FP) PO SCH (21:24)
[2019-01-12] MEDS: LATANOPROST 0.005% OPHTH SOLN 2.5ML BOTTLE OU SCH (21:27)
[2019-01-13] MEDS: INSULIN SLIDING SCALE (NOVOLOG) 1 VIAL SQ SCH ×4 (06:27→21:48)
[2019-01-13] MEDS: LEVOTHYROXINE NA 50 MCG TABLET (FP) PO SCH (06:28)
[2019-01-13 06:46] LABS: BASO % 0.8 % (0-2.0); EOS % 7.7 % (0-4.5); HEMOGLOBIN 8.5 GM/dL (10.7-15.3); LYMPH % 28.4 % (8-40); MCH 29.8 pg (25.7-33.7); MCHC 34.1 g/dl (32.0-36.0); MEAN CELL VOLUME 87.5 fl (80-96); MEAN PLT VOLUME 9.2 fl (7.5-11.1); MONO % 9.5 % (3.8-10.2); NEUT % 53.6 % (42.8-82.8); PLATELET COUNT 152 K/MM3 (134-434); RBC 2.86 M/mm3 (3.60-5.2); RDW 13.4 % (11.6-15.6); WHITE BLOOD COUNT 5.8 K/mm3 (4.0-10.0)
[2019-01-13 07:18] LABS: BILIRUBIN,TOTAL 0.4 mg/dL (0.2-1); BLOOD UREA NITROGEN 62.2 mg/dL (7-18); CALCIUM 8.4 mg/dL (8.5-10.1); CREATININE 2.6 mg/dL (0.55-1.3); MAGNESIUM 2.2 mg/dL (1.8-2.4); PHOSPHOROUS 3.4 mg/dL (2.5-4.9); TOT PROT 6.2 g/dl (6.4-8.2)
[2019-01-13] MEDS ORDERED: hydrALAZINE HCL 50 MG TABLET (FP) PO SCH (10:00)
[2019-01-13 10:02] LABS: RPR NONREACTIVE (NONREACTIVE)
--- NOTE | 2019-01-13 11:41 | PN ---
Progress Note (short form) - Note Progress Note: no cp, palps, dizziness, dyspnea Current Medications Atorvastatin Calcium (Lipitor -) 40 mg PO HS [facility] Clopidogrel Bisulfate (Plavix -) 75 mg PO DAILY [facility] Last Admin: 01/12/19 13:36 Dose: 75 mg Hydralazine HCl (Apresoline -) 50 mg PO BID [facility] Sodium Chloride (Normal Saline -) 1,000 mls @ 125 mls/hr IV ASDIR [facility] Last Admin: 01/12/19 10:00 Dose: 125 mls/hr Insulin Aspart (Novolog Vial Sliding Scale -) 1 vial SQ ACHS [facility]; Protocol Last Admin: 01/13/19 06:27 Dose: Not Given Isosorbide Mononitrate (Imdur -) 30 mg PO DAILY [facility] Last Admin: 01/12/19 13:36 Dose: 30 mg Latanoprost (Xalatan 0.005% Eye Drops -) 1 drop OU HS [facility] Last Admin: 01/12/19 21:27 Dose: 1 drop Levothyroxine Sodium (Synthroid -) 50 mcg PO DAILY@0700 [facility] Last Admin: 01/13/19 06:28 Dose: 50 mcg Metoprolol Tartrate (Lopressor -) 50 mg PO BID [facility] Last Admin: 01/12/19 21:24 Dose: 50 mg Nifedipine (Procardia Xl -) 60 mg PO DAILY [facility] Last Admin: 01/12/19 13:43 Dose: Not Given Ranitidine HCl (Zantac -) 150 mg PO DAILY [facility] Last Admin: 01/12/19 13:36 Dose: 150 mg Sumatriptan Succinate (Imitrex -) 50 mg PO DAILY PRN PRN Reason: HEADACHE Vital Signs Period Temp Pulse Resp BP Sys/Cárdenas Pulse Ox Last 24 Hr 97.5 F-98.5 F 67-102 18-22 139-184/64-90 99-99 Constitutional: Yes: No Distress, Calm Eyes: No: Sclera Icterus HENT: No: Nasal Congestion Cardiovascular: Yes: Regular Rate and Rhythm, S1, S2, Other (PMI non diplaced). No: JVD, Gallop, Murmur Respiratory: Yes: CTA Bilaterally. No: Accessory Muscle Use, Rales, Wheezes Gastrointestinal: Yes: Normal Bowel Sounds, Soft. No: Tenderness Musculoskeletal: Yes: Other (No kyphosis) Extremities: No: Cold, Cyanosis Edema: No Integumentary: No: Jaundice Neurological: Yes: Alert, Oriented (x3) Psychiatric: No: Agitated Assessment/Plan ECG: sinus tach, normal axis/interv. no path q's. nonsp ST-T lateral leads (no prior) ECG #2: no signif change CXR: sternal sutures, prominent heart. clear lungs/pleura tele: NSR, APCs, artifact abd pain, vomiting/diarrhea, h/o CAD: -reports same sx's at time of 2004 [facility] when had CABG, states had [place] then. insulin-dep't diabetic -afebrile. WBC, lipase, lactate, LFTs WNL. CT abd/pelvis with no acute process. abdomen is non-tender. -sx's sound most consistent with GI etiology with strong gas/bloating component , ? component of DM gastroparesis. -however must exclude UA/ACS. -ECG non-ischemic, nonsp ST-T ? LVH related (cardiomegaly noted on CXR). -troponin trend fairly flat, indeterminate range (0.02-0.09-0.12-0.08) -pt is hi risk for ROGER from cath (GFR <20, DM, elderly) -mult prior stents with ASA allergy, on plavix--details of stents not available- ->cont plavix, home anti-anginals (metoprolol, iso mononitrate) -on simva 40 at home, restart on discharge (not on formulary here) - echo - nl LV function, mild MR, mild TR, unremarkable - mibi shows no ischemia, nl LV function - no further cardiac testing recommended HTN: -remains uncontrolled at times, severe at night -hydralazine short half life requires at least bid-tid dosing--likely losing am dose effect by PM hence bp to 190 -changed hydral 100 qd to 50 bid, observe bp trend -cont remainder of home meds same - ARB and thiazide held for ELEAZAR - BP elevated this AM - did not receive meds yet, observe trend on current regimen CKD: -no baseline data available -bun/creat 89/3.1-->3.5. -observe trend -renal input appreciated: acute kidney injury, nephrotic range proteinuria-- holding thiazide, ARB anemia: -hgb 10, no prior baseline -trend labs
[2019-01-13] MEDS: NIFEdipine E.R 60 MG TABLET (UD) PO SCH (11:43)
[2019-01-13] MEDS: RANITIDINE HCL 150 MG TABLET (FP) PO SCH (11:43)
[2019-01-13] MEDS: CLOPIDOGREL BISULFATE 75 MG TABLET (FP) PO SCH (11:43)
[2019-01-13] MEDS: METOPROLOL TARTRATE 50 MG TABLET (FP) PO SCH ×2 (11:43→21:47)
[2019-01-13] MEDS: ISOSORBIDE MONONITRATE 30 MG TAB.SR.24H (FP) PO SCH (11:43)
[2019-01-13] MEDS ORDERED: FERROUS SO4 325 MG TABLET (FP) PO ONE (12:08)
[2019-01-13] MEDS ORDERED: SODIUM CHLORIDE 0.45% 1,000 ML IV SCH ×2 (12:15→14:31)
--- NOTE | 2019-01-13 13:35 | PN ---
Teaching Attending Note Name of Resident: Ken Lozano ATTENDING PHYSICIAN STATEMENT I saw and evaluated the patient. I reviewed the resident's note and discussed the case with the resident. I agree with the resident's findings and plan as documented. SUBJECTIVE:asymptomatic. deneis Cp, SOB, fever, chills, N/V/C/D, hematuria, BRBPR OBJECTIVE: Last Vital Signs Temp Pulse Resp BP Pulse Ox 97.8 F 102 H 22 H 184/90 H 99 01/13/19 06:00 01/13/19 10:00 01/13/19 10:00 01/13/19 10:00 01/13/19 00:00 General NAD CV S1 S2 RRR Lungs CTA B/L no wheezing/rales/rhoncbhi Abdomen soft NT/ND Extremities no pedal edema ASSESSMENT AND PLAN: 78 year old female with history of HTN, HLD, DM 2, CAD (s/p CABG 2004/PCI 2006) , DJD Spine s/p Spinal Sx, Migraine, Hypothyroidism, presents with rapid onset epigastric discomfort with associated vomiting x 1/bloating. No palpitations/ dyspnea/diaphoresis/lightheadedness. 1. Epigastric Pain, possible ACS on background CAD s/p CABG- Trop peaked at 0.12 was on hpe ggt but now stopped as NMST was negative. no further cardiac testing at [facility] 2. ELEAZAR- ATN vs AIN. slowly improving. hold diuretic and ARB. will d/w nephro about decreasing rate vs stopping and repeating to see if continues to improve. spep and urine studies pending. pt plan to return to [place], will need further outpatient testing 3. Normocytic anemia- slowly trending down. likely dilutional component. states she had normal colonoscopy a few years ago. unsure if she needed to ahve repeat. no hx of blood transfuision. will monitor Hgb. no indication for transfusion 3. HTN- above goal. started on hydralzine TID. will see if improves. titrate up as needed to optimize control 4. dyslipidemia- statin 5. DM- cont iss and bgm 6.migraine- imitrex 7. hyothyroid- LT4 8. DVT ppx- will switch to hep sq 9. anticipate discharge in next 24H. can d/c cardiac monitoring
[2019-01-13] MEDS ORDERED: SUMAtriptan SUCCINATE 50 MG TABLET PO PRN (14:31)
[2019-01-13 15:07] LABS: MICROALBUMIN/CREATININE RATIO 2928.1 mg/g creat (0.0-30.0)
--- NOTE | 2019-01-13 16:02 | PN ---
Progress Note (short form) - Note Progress Note: Renal follow up for ELEAZAR Pt seen and examined at the bedside feels better denies any sob, cp, abd pain, fever or chills making urine on IVF Vital Signs Temperature 97.8 F 01/13/19 06:00 Pulse Rate 102 H 01/13/19 10:00 Respiratory Rate 22 H 01/13/19 10:00 Blood Pressure 184/90 H 01/13/19 10:00 O2 Sat by Pulse Oximetry (%) 99 01/13/19 00:00 Intake & Output 01/10/19 01/11/19 01/12/19 01/13/19 23:59 23:59 23:59 23:59 Intake Total 120 1509 3181 2300 Balance 120 1509 3181 2300 Weight 60.781 kg NAD awake and alert neck supple RRR CTA soft NT/ND no LE edema no bladder distension CBC, BMP 01/13/19 05:34 01/13/19 05:34 Current Medications Atorvastatin Calcium (Lipitor -) 40 mg PO HS [facility] Clopidogrel Bisulfate (Plavix -) 75 mg PO DAILY [facility] Hydralazine HCl (Apresoline -) 50 mg PO BID [facility] Sodium Chloride (1/2 Normal Saline) 1,000 mls @ 75 mls/hr IV ASDIR [facility] Insulin Aspart (Novolog Vial Sliding Scale -) 1 vial SQ ACHS [facility]; Protocol Isosorbide Mononitrate (Imdur -) 30 mg PO DAILY [facility] Latanoprost (Xalatan 0.005% Eye Drops -) 1 drop OU HS [facility] Levothyroxine Sodium (Synthroid -) 50 mcg PO DAILY@0700 [facility] Metoprolol Tartrate (Lopressor -) 50 mg PO BID [facility] Nifedipine (Procardia Xl -) 60 mg PO DAILY [facility] Ranitidine HCl (Zantac -) 150 mg PO DAILY [facility] Sumatriptan Succinate (Imitrex -) 50 mg PO DAILY PRN PRN Reason: HEADACHE 78 year old woman with history of of CAD s/p CABG, Hypertension, DM on insulin who presented with complaints of Abd pain with N/V and found to have Cr of 3.1. #Acute kidney injury likely due to ATN in setting of ARB/diuretics and hypovolemia vs. AIN #Nausea/Vomiting with Abd pain #CAD s/p CABG #IDDM Renal function with mild improvement thus far Urine studies consistent with tubular injury. Urine Protein to Cr ratio is 4.1 ( nephrotic range) hold diuretics and ARB for now Can change IVF to hypotonic fluids, plan to stop in am if renal function improving Serologic work up pendin Check Hgb A1C continue supportive care Cardiology follow up Thank you Wm Oseguera DO
--- NOTE | 2019-01-13 18:32 | PN ---
Physical Exam: SUBJECTIVE: 78 y/o F w PMH HTN, HLD, DM, hypothyroidism, migraine, CAD s/p CABG 2004 and PCI 2006, DJD, and spinal stenosis whom presented w epigastric discomfort and emesis, seen at bedside today PADMINI 3. She was admtted to r/o ACS and has since has a down trending Trop w max 0.12 and neg EKG. She offers no complaints today. Pt states her abdominal/epigastric pain is no longer present. Pt held to monitor renal function. BUN/Cr slowly trending in the right direction. She reports no urinary symptoms, YAP, and light-headedness. She denies lightheadedness, CP, palpitations, chills, headache, dizziness, SOB, abdominal pain, and NVFD. OBJECTIVE: Vital Signs Temp Pulse Resp BP Pulse Ox 98.4 F 85 22 H 162/77 99 01/13/19 14:00 01/13/19 14:00 01/13/19 14:00 01/13/19 14:00 01/13/19 00:00 GENERAL: The patient is awake, alert, and fully oriented, in no acute distress. Croatian speaking only. HEAD: Normocephalic, atraumatic. EYES: LAURO, EOMI, sclera anicteric, conjunctiva clear. No ptosis. Wears corrective glasses. ENT: Ears normal, nares patent, oropharynx clear without exudates, moist mucous membranes. NECK: Trachea midline, full range of motion, supple. LUNGS: Breath sounds equal, clear to auscultation bilaterally, no wheezes, no crackles, no accessory muscle use. HEART: Regular rate and rhythm, S1, S2 without murmur, rub or gallop. ABDOMEN: Soft, nontender, nondistended, normoactive bowel sounds, no guarding, no rebound, no hepatosplenomegaly, no masses. EXTREMITIES: 2+ pulses, warm, well-perfused, no edema. NEUROLOGICAL: Cranial nerves III through XII grossly intact. Normal speech, gait not observed. PSYCH: Normal mood, normal affect. SKIN: Warm, dry, normal turgor, no rashes or lesions noted Laboratory Results - last 24 hr 01/10/19 01/12/19 01/13/19 20:32 21:18 05:16 WBC RBC Hgb Hct MCV MCH MCHC RDW Plt Count MPV Absolute Neuts (auto) Neutrophils % Lymphocytes % Monocytes % Eosinophils % Basophils % Nucleated RBC % PTT (Actin FS) Sodium Potassium Chloride Carbon Dioxide Anion Gap BUN Creatinine Est GFR (CKD-EPI)AfAm Est GFR (CKD-EPI)NonAf POC Glucometer 124 104 Random Glucose Calcium Phosphorus Magnesium Total Bilirubin AST ALT Alkaline Phosphatase Total Protein Albumin Ur Random Creatinine 20.3 Ur Random Microalbumin 594.4 Microalb/Creat Ratio 2928.1 H RPR Titer HIV 1&2 Antibody Screen HIV P24 Antigen 01/13/19 01/13/19 01/13/19 05:34 05:34 05:34 WBC 5.8 RBC 2.86 L Hgb 8.5 L Hct 25.0 L MCV 87.5 MCH 29.8 MCHC 34.1 RDW 13.4 Plt Count 152 MPV 9.2 Absolute Neuts (auto) 3.1 Neutrophils % 53.6 Lymphocytes % 28.4 Monocytes % 9.5 Eosinophils % 7.7 H Basophils % 0.8 Nucleated RBC % 0 PTT (Actin FS) 27.1 Sodium Potassium Chloride Carbon Dioxide Anion Gap BUN Creatinine Est GFR (CKD-EPI)AfAm Est GFR (CKD-EPI)NonAf POC Glucometer Random Glucose Calcium Phosphorus Magnesium Total Bilirubin AST ALT Alkaline Phosphatase Total Protein Albumin Ur Random Creatinine Ur Random Microalbumin Microalb/Creat Ratio RPR Titer Nonreactive HIV 1&2 Antibody Screen Negative HIV P24 Antigen Negative 01/13/19 01/13/19 01/13/19 05:34 12:04 17:53 WBC RBC Hgb Hct MCV MCH MCHC RDW Plt Count MPV Absolute Neuts (auto) Neutrophils % Lymphocytes % Monocytes % Eosinophils % Basophils % Nucleated RBC % PTT (Actin FS) Sodium 144 Potassium 4.0 Chloride 114 H Carbon Dioxide 22 Anion Gap 8 BUN 62.2 H Creatinine 2.6 H Est GFR (CKD-EPI)AfAm 19.55 Est GFR (CKD-EPI)NonAf 16.86 POC Glucometer 146 175 Random Glucose 98 Calcium 8.4 L Phosphorus 3.4 Magnesium 2.2 Total Bilirubin 0.4 AST 20 ALT 17 Alkaline Phosphatase 53 Total Protein 6.2 L Albumin 3.0 L Ur Random Creatinine Ur Random Microalbumin Microalb/Creat Ratio RPR Titer HIV 1&2 Antibody Screen HIV P24 Antigen Active Medications Atorvastatin Calcium (Lipitor -) 40 mg PO HS [facility] Clopidogrel Bisulfate (Plavix -) 75 mg PO DAILY [facility] Hydralazine HCl (Apresoline -) 50 mg PO BID [facility] Sodium Chloride (1/2 Normal Saline) 1,000 mls @ 75 mls/hr IV ASDIR [facility] Last Admin: 01/13/19 17:56 Dose: 75 mls/hr Insulin Aspart (Novolog Vial Sliding Scale -) 1 vial SQ ACHS [facility]; Protocol Last Admin: 01/13/19 17:55 Dose: 2 units Isosorbide Mononitrate (Imdur -) 30 mg PO DAILY [facility] Latanoprost (Xalatan 0.005% Eye Drops -) 1 drop OU HS [facility] Levothyroxine Sodium (Synthroid -) 50 mcg PO DAILY@0700 [facility] Metoprolol Tartrate (Lopressor -) 50 mg PO BID [facility] Nifedipine (Procardia Xl -) 60 mg PO DAILY [facility] Ranitidine HCl (Zantac -) 150 mg PO DAILY [facility] Sumatriptan Succinate (Imitrex -) 50 mg PO DAILY PRN PRN Reason: HEADACHE ASSESSMENT/PLAN: 78 y/o F w PMH HTN, HLD, DM, CAD s/p CABG 2004 and PCI 2006, hypothyroidism, migraine, DJD, and spinal stenosis whom presented w epigastric discomfort and emesis, admitted to r/o ACS. # Possible ACS - GERD vs DM gastro/enteropathy - NMST was negative. No further cardiac testing. - Troponins trending down from max 0.12 on 8.18.19AM and continues in this direction - NEG ECG w no acute ischemic changes. - CT: non-obstructing renal stones, diverticulosis, multilevel DJD L spine s/p sx w no acute intra-abdominal process - Cont. clopidogrel, BB, ISMN (ASA Allergy) - NEG ECHO today - Cardiology on board (Dr. Pollock) # Possible ELEAZAR - ATN vs AIN - BUN/Cr today:62.2/2.6 - Urine studies consistent with tubular injury. Urine Protein to Cr ratio is 4.1 (nephrotic range) - Diuretic/ARB held - Serologic work up pending - IV hydration changed to hypotonic fluids, plan to stop in am if renal function improving - No obstruction on imaging - Nephrology on board (Dr. Oseguera) - Will need further outpatient testing at home in [place] # Normocytic anemia - Trending down - Most likely dilutional - Pt reports normal colonoscopy in recent hx - No h/o blood transfuision - Cont. to monitor Hb - No present indication for transfusion # HTN - Continue ISMN, metoprolol, nifedipine. - Hydralazine dosing split to BID - Irbesartan held due to ELEAZAR. # HLD - Cont. Lipitor 80 mg # DM - ISS # Migraine - Imitrex prn # Hypothyroidism - TSH 4.6 - Cont. levothyroxine - Repeat TSH in 3-4 weeks # F/E/N - NS - Cont. to monitor electrolytes - Diabetic/low sodium diet # DVT prophylaxis - Heparin # Disposition - Full code Ken Lozano MD Visit type - Emergency Visit Emergency Visit: No - New Patient This patient is new to me today: No - Critical Care Critical Care patient: No - Discharge Referral Referred to [facility] Med [facility] No ATTENDING PHYSICIAN STATEMENT I saw and evaluated the patient. I reviewed the resident's note and discussed the case with the resident. I agree with the resident's findings and plan as documented. SUBJECTIVE: OBJECTIVE: ASSESSMENT AND PLAN:
[2019-01-13] MEDS ORDERED: INSULIN (NOVOLOG) ASPART 100 UNITS/ML 10ML VIAL ONE (21:42)
[2019-01-13] MEDS: hydrALAZINE HCL 50 MG TABLET (FP) PO SCH (21:47)
[2019-01-13] MEDS ORDERED: LATANOPROST 0.005% OPHTH SOLN 2.5ML BOTTLE OU SCH (22:00)
[2019-01-13] MEDS ORDERED: ATORVASTATIN CA 40 MG TABLET (FP) PO SCH ×2 (22:00)
[2019-01-13] MEDS ORDERED: POLYETHYLENE GLYCOL 3350 119 GM BTL PO ONE (22:32)
[2019-01-13] MEDS ORDERED: DOCUSATE SODIUM 100 MG CAPSULE (FP) PO ONE (22:32)
[2019-01-14] MEDS: INSULIN SLIDING SCALE (NOVOLOG) 1 VIAL SQ SCH ×2 (06:17→12:53)
[2019-01-14] MEDS ORDERED: LEVOTHYROXINE NA 50 MCG TABLET (FP) PO SCH (07:00)
[2019-01-14 07:54] LABS: BASO % 0.6 % (0-2.0); EOS % 7.7 % (0-4.5); HEMATOCRIT 27.2 % (32.4-45.2); HEMOGLOBIN 9.2 GM/dL (10.7-15.3); LYMPH % 31.3 % (8-40); MCH 29.8 pg (25.7-33.7); MCHC 33.9 g/dl (32.0-36.0); MEAN CELL VOLUME 87.9 fl (80-96); MEAN PLT VOLUME 9.3 fl (7.5-11.1); MONO % 9.2 % (3.8-10.2); NEUT % 51.2 % (42.8-82.8); PLATELET COUNT 152 K/MM3 (134-434); RBC 3.09 M/mm3 (3.60-5.2); RDW 13.3 % (11.6-15.6); WHITE BLOOD COUNT 6.4 K/mm3 (4.0-10.0)
[2019-01-14 08:37] LABS: ALBUMIN 3.1 g/dl (3.4-5.0); BILIRUBIN,TOTAL 0.4 mg/dL (0.2-1); BLOOD UREA NITROGEN 60.8 mg/dL (7-18); CALCIUM 8.3 mg/dL (8.5-10.1); CREATININE 2.5 mg/dL (0.55-1.3); MAGNESIUM 2.1 mg/dL (1.8-2.4); PHOSPHOROUS 3.4 mg/dL (2.5-4.9); POTASSIUM 4.1 mmol/L (3.5-5.1); TOT PROT 6.4 g/dl (6.4-8.2)
[2019-01-14] MEDS ORDERED: NIFEdipine E.R 60 MG TABLET (UD) PO SCH (10:00)
[2019-01-14] MEDS ORDERED: DOCUSATE SODIUM 100 MG CAPSULE (FP) PO SCH (10:00)
[2019-01-14] MEDS ORDERED: ISOSORBIDE MONONITRATE 30 MG TAB.SR.24H (FP) PO SCH (10:00)
[2019-01-14] MEDS ORDERED: CLOPIDOGREL BISULFATE 75 MG TABLET (FP) PO SCH (10:00)
[2019-01-14] MEDS ORDERED: SENNOSIDES 8.6MG TABLET (FP) PO SCH (10:00)
[2019-01-14] MEDS ORDERED: RANITIDINE HCL 150 MG TABLET (FP) PO SCH (10:00)
[2019-01-14] MEDS: hydrALAZINE HCL 50 MG TABLET (FP) PO SCH (10:28)
[2019-01-14] MEDS: METOPROLOL TARTRATE 50 MG TABLET (FP) PO SCH (10:28)
--- NOTE | 2019-01-14 10:52 | PN ---
Teaching Attending Note Name of Resident: Rubia Duke ATTENDING PHYSICIAN STATEMENT I saw and evaluated the patient. I reviewed the resident's note and discussed the case with the resident. I agree with the resident's findings and plan as documented. SUBJECTIVE:asymptomatic. denies Cp, SOB, fever, chills, N/V/C/D OBJECTIVE: Last Vital Signs Temp Pulse Resp BP Pulse Ox 98.3 F 70 22 H 137/53 L 100 01/14/19 06:00 01/14/19 06:00 01/14/19 06:00 01/14/19 06:00 01/14/19 06:00 General NAD CV S1 S2 RRR Lungs CTA B/L no wheezing/rales/rhoncbhi Abdomen soft NT/ND Extremities no pedal edema ASSESSMENT AND PLAN: 78 year old female with history of HTN, HLD, DM 2, CAD (s/p CABG 2004/PCI 2006) , DJD Spine s/p Spinal Sx, Migraine, Hypothyroidism, presents with rapid onset epigastric discomfort with associated vomiting x 1/bloating. No palpitations/ dyspnea/diaphoresis/lightheadedness. 1. Epigastric Pain, possible ACS on background CAD s/p CABG- Trop peaked at 0.12 was on hpe ggt but now stopped as NMST was negative. no further cardiac testing [facility] 2. ELEAZAR- ATN vs AIN. continues to slowly improve. lab studies sent. will need to continue with holding diuretic and arb. have repeat labs in a week and determine if bx is needed. pt plan to return to [place], will need further outpatient testing 3. Normocytic anemia- likely dilutional component. now stable. no signs of bleeding. had colonoscopy in past few years. should d/w PMD about repeating if hgb is below baseline (unclear what baseline is) 3. HTN-improved. cont current management. hold arb/diuretic. 4. dyslipidemia- statin 5. DM- cont iss and bgm 6.migraine- imitrex 7. hyothyroid- LT4 8. DVT ppx- hep sq 9. d/c home. stressed importance of follow up
--- NOTE | 2019-01-14 12:22 | PN ---
Progress Note (short form) - Note Progress Note: no cp, palps, dizziness, dyspnea Current Medications Atorvastatin Calcium (Lipitor -) 40 mg PO HS [facility] Last Admin: 01/13/19 21:48 Dose: 40 mg Clopidogrel Bisulfate (Plavix -) 75 mg PO DAILY [facility] Last Admin: 01/14/19 10:29 Dose: 75 mg Docusate Sodium (Colace -) 100 mg PO DAILY [facility] Last Admin: 01/14/19 10:28 Dose: 100 mg Hydralazine HCl (Apresoline -) 50 mg PO BID [facility] Last Admin: 01/14/19 10:28 Dose: 50 mg Insulin Aspart (Novolog Vial Sliding Scale -) 1 vial SQ [facility]; Protocol Last Admin: 01/14/19 06:17 Dose: Not Given Isosorbide Mononitrate (Imdur -) 30 mg PO DAILY [facility] Last Admin: 01/14/19 10:28 Dose: 30 mg Latanoprost (Xalatan 0.005% Eye Drops -) 1 drop [facility] Last Admin: 01/13/19 21:47 Dose: 1 drop Levothyroxine Sodium (Synthroid -) 50 mcg PO DAILY@0700 [facility] Last Admin: 01/14/19 06:17 Dose: 50 mcg Metoprolol Tartrate (Lopressor -) 50 mg PO BID [facility] Last Admin: 01/14/19 10:28 Dose: 50 mg Nifedipine (Procardia Xl -) 60 mg PO DAILY [facility] Last Admin: 01/14/19 10:29 Dose: 60 mg Ranitidine HCl (Zantac -) 150 mg PO DAILY [facility] Last Admin: 01/14/19 10:29 Dose: 150 mg Senna (Senna -) 1 tab PO BID [facility] Last Admin: 01/14/19 10:29 Dose: 1 tab Sumatriptan Succinate (Imitrex -) 50 mg PO DAILY PRN PRN Reason: HEADACHE Vital Signs Period Temp Pulse Resp BP Sys/Cárdenas Pulse Ox Last 24 Hr 97.4 F-98.4 F 68-85 20-22 137-162/52-77 99-100 Constitutional: Yes: No Distress, Calm Eyes: No: Sclera Icterus HENT: No: Nasal Congestion Cardiovascular: Yes: Regular Rate and Rhythm, S1, S2, Other (PMI non diplaced). No: JVD, Gallop, Murmur Respiratory: Yes: CTA Bilaterally. No: Accessory Muscle Use, Rales, Wheezes Gastrointestinal: Yes: Normal Bowel Sounds, Soft. No: Tenderness Musculoskeletal: Yes: Other (No kyphosis) Extremities: No: Cold, Cyanosis Edema: No Integumentary: No: Jaundice Neurological: Yes: Alert, Oriented (x3) Psychiatric: No: Agitated Assessment/Plan ECG: sinus tach, normal axis/interv. no path q's. nonsp ST-T lateral leads (no prior) ECG #2: no signif change CXR: sternal sutures, prominent heart. clear lungs/pleura tele: sinus abd pain, vomiting/diarrhea, h/o CAD: -reports same sx's at [facility] when had [facility]G, states had HI then. insulin-dep't diabetic -afebrile. WBC, lipase, lactate, LFTs WNL. CT abd/pelvis with no acute process. abdomen is non-tender. -sx's sound most consistent with GI etiology with strong gas/bloating component , ? component of DM gastroparesis. -however must exclude UA/ACS. -ECG non-ischemic, nonsp ST-T ? LVH related (cardiomegaly noted on CXR). -troponin trend fairly flat, indeterminate range (0.02-0.09-0.12-0.08) -pt is hi risk for ROGER from cath (GFR <20, DM, elderly) -mult prior stents with ASA allergy, on plavix--details of stents not available- ->cont plavix, home anti-anginals (metoprolol, iso mononitrate) -on simva 40 at home, restart on discharge (not on formulary here) - echo - nl LV function, mild MR, mild TR, unremarkable - mibi shows no ischemia, nl LV function - no further cardiac testing recommended HTN: -changed hydral 100 qd to 50 bid, observe bp trend -cont remainder of home meds same - ARB and thiazide held for ELEAZAR - BP improving, continue current meds CKD: -no baseline data available -bun/creat 89/3.1-->3.5. -observe trend -renal input appreciated: acute kidney injury, nephrotic range proteinuria-- holding thiazide, ARB anemia: -hgb 10, no prior baseline -trend labs
--- NOTE | 2019-01-14 13:42 | PN ---
Progress Note (short form) - Note Progress Note: Renal follow up for ELEAZAR Pt seen and examined at the bedside feels well no acute complaints denies any sob, cp, abd pain, N/V/D tolerating oral diet Vital Signs Temperature 98.3 F 01/14/19 06:00 Pulse Rate 70 01/14/19 06:00 Respiratory Rate 22 H 01/14/19 06:00 Blood Pressure 137/53 L 01/14/19 06:00 O2 Sat by Pulse Oximetry (%) 100 01/14/19 06:00 Intake & Output 01/11/19 01/12/19 01/13/19 01/14/19 23:59 23:59 23:59 23:59 Intake Total 1509 3181 2860 1620 Balance 1509 3181 2860 1620 NAD awake and alert neck supple RRR CTA soft NT/ND no LE edema no bladder distension CBC, BMP 01/14/19 06:51 01/14/19 06:51 Current Medications Atorvastatin Calcium (Lipitor -) 40 mg PO HS [facility] Last Admin: 01/13/19 21:48 Dose: 40 mg Clopidogrel Bisulfate (Plavix -) 75 mg PO DAILY [facility] Last Admin: 01/14/19 10:29 Dose: 75 mg Docusate Sodium (Colace -) 100 mg PO DAILY [facility] Last Admin: 01/14/19 10:28 Dose: 100 mg Hydralazine HCl (Apresoline -) 50 mg PO BID [facility] Last Admin: 01/14/19 10:28 Dose: 50 mg Insulin Aspart (Novolog Vial Sliding Scale -) 1 vial SQ [facility]; Protocol Last Admin: 01/14/19 12:53 Dose: Not Given Isosorbide Mononitrate (Imdur -) 30 mg PO DAILY [facility] Last Admin: 01/14/19 10:28 Dose: 30 mg Latanoprost (Xalatan 0.005% Eye Drops -) 1 drop OU HS [facility] Last Admin: 01/13/19 21:47 Dose: 1 drop Levothyroxine Sodium (Synthroid -) 50 mcg PO DAILY@0700 [facility] Last Admin: 01/14/19 06:17 Dose: 50 mcg Metoprolol Tartrate (Lopressor -) 50 mg PO BID [facility] Last Admin: 01/14/19 10:28 Dose: 50 mg Nifedipine (Procardia Xl -) 60 mg PO DAILY [facility] Last Admin: 01/14/19 10:29 Dose: 60 mg Ranitidine HCl (Zantac -) 150 mg PO DAILY [facility] Last Admin: 01/14/19 10: Dose: 150 mg Senna (Senna -) 1 tab PO BID [facility] Last Admin: 01/14/19 10: Dose: 1 tab Sumatriptan Succinate (Imitrex -) 50 mg PO DAILY PRN PRN Reason: HEADACHE 78 year old woman with history of of CAD s/p CABG, Hypertension, DM on insulin who presented with complaints of Abd pain with N/V and found to have Cr of 3.1. #Acute kidney injury likely due to ATN in setting of ARB/diuretics and hypovolemia vs. AIN #Nausea/Vomiting with Abd pain #CAD s/p CABG #IDDM Renal function improved from peak Cr and now stable US consistent with CKD no overt electrolyte, acid/base or volume abnormality Urine studies consistent with tubular injury. Urine Protein to Cr ratio is 4.1 ( nephrotic range) hold diuretics and ARB for now, trend renal function as an outpatient d/c IVF Serologic work up pending discharge planning as per primary team asked to follow up in our office on discharge for monitoring of kidney function Thank you Wm Oseguera DO
[2019-01-14 14:15] VITALS: TEMP 98.1
[2019-01-14 15:36] VITALS: BP 148/63; PULSE 67
--- NOTE | 2019-01-14 15:51 | DS ---
Physical Exam: SUBJECTIVE: 78 y/o F w PMH HTN, HLD, DM, hypothyroidism, migraine, CAD s/p CABG 2004 and PCI 2006, DJD, and spinal stenosis whom presented w epigastric discomfort and emesis, seen at bedside today. She was admtted to r/o ACS and has since has a down trending Trop w max 0.12 and neg EKG, NEG stress test. She offers no complaints today. Pt states her abdominal/epigastric pain is no longer present. Pt held to monitor renal function. BUN/Cr slowly trending in the right direction. She reports no urinary symptoms, YAP, and light-headedness. She denies lightheadedness, CP, palpitations, chills, headache, dizziness, SOB, abdominal pain, and NVFD. OBJECTIVE: Vital Signs Temp Pulse Resp BP Pulse Ox 98.1 F 67 22 H 148/63 97 01/14/19 14:00 01/14/19 14:00 01/14/19 10:00 01/14/19 14:00 01/14/19 09:00 PHYSICAL EXAM GENERAL: The patient is awake, alert, and fully oriented, in no acute distress. Citizen Of [place] speaking only. HEAD: Normocephalic, atraumatic. EYES: LAURO, EOMI, sclera anicteric, conjunctiva clear. No ptosis. Wears corrective glasses. ENT: Ears normal, nares patent, oropharynx clear without exudates, moist mucous membranes. NECK: Trachea midline, full range of motion, supple. LUNGS: Breath sounds equal, clear to auscultation bilaterally, no wheezes, no crackles, no accessory muscle use. HEART: Regular rate and rhythm, S1, S2 without murmur, rub or gallop. ABDOMEN: Soft, nontender, nondistended, normoactive bowel sounds, no guarding, no rebound, no hepatosplenomegaly, no masses. EXTREMITIES: 2+ pulses, warm, well-perfused, no edema. NEUROLOGICAL: Cranial nerves III through XII grossly intact. Normal speech, gait not observed. PSYCH: Normal mood, normal affect. SKIN: Warm, dry, normal turgor, no rashes or lesions noted LABS Laboratory Results - last 24 hr 01/13/19 01/13/19 01/13/19 05:34 17:53 20:17 WBC RBC Hgb Hct MCV MCH MCHC RDW Plt Count MPV Absolute Neuts (auto) Neutrophils % Lymphocytes % Monocytes % Eosinophils % Basophils % Nucleated RBC % Sodium Potassium Chloride Carbon Dioxide Anion Gap BUN Creatinine Est GFR (CKD-EPI)AfAm Est GFR (CKD-EPI)NonAf POC Glucometer 175 130 Random Glucose Calcium Phosphorus Magnesium Total Bilirubin AST ALT Alkaline Phosphatase Total Protein Albumin Hep A IgM Ab Confirm Negative Hep Bs Antigen Negative Hep B Core IgM Ab Negative Hepatitis C Ab (EIA) <0.1 01/14/19 01/14/19 01/14/19 06:12 06:51 06:51 WBC 6.4 RBC 3.09 L Hgb 9.2 L Hct 27.2 L MCV 87.9 MCH 29.8 MCHC 33.9 RDW 13.3 Plt Count 152 MPV 9.3 Absolute Neuts (auto) 3.3 Neutrophils % 51.2 Lymphocytes % 31.3 Monocytes % 9.2 Eosinophils % 7.7 H Basophils % 0.6 Nucleated RBC % 0 Sodium 142 Potassium 4.1 Chloride 112 H Carbon Dioxide 21 Anion Gap 9 BUN 60.8 H Creatinine 2.5 H Est GFR (CKD-EPI)AfAm 20.49 Est GFR (CKD-EPI)NonAf 17.68 POC Glucometer 128 Random Glucose 119 H Calcium 8.3 L Phosphorus 3.4 Magnesium 2.1 Total Bilirubin 0.4 AST 70 H ALT 55 Alkaline Phosphatase 73 Total Protein 6.4 Albumin 3.1 L Hep A IgM Ab Confirm Hep Bs Antigen Hep B Core IgM Ab Hepatitis C Ab (EIA) 01/14/19 11:54 WBC RBC Hgb Hct MCV MCH MCHC RDW Plt Count MPV Absolute Neuts (auto) Neutrophils % Lymphocytes % Monocytes % Eosinophils % Basophils % Nucleated RBC % Sodium Potassium Chloride Carbon Dioxide Anion Gap BUN Creatinine Est GFR (CKD-EPI)AfAm Est GFR (CKD-EPI)NonAf POC Glucometer 137 Random Glucose Calcium Phosphorus Magnesium Total Bilirubin AST ALT Alkaline Phosphatase Total Protein Albumin Hep A IgM Ab Confirm Hep Bs Antigen Hep B Core IgM Ab Hepatitis C Ab (EIA) HOSPITAL COURSE: Date of Admission:01/13/19 78 y/o F w PMH HTN, HLD, DM, CAD s/p CABG 2004 and PCI 2006, hypothyroidism, migraine, DJD, and spinal stenosis whom presented w epigastric discomfort and emesis, admitted to r/o ACS. Possible ACS considered vs GERD vs DM gastro/ enteropathy. NMST and ECHO were negative, troponins trended down from max 0.12 on 8.18.19AM and continued in this direction. NEG ECG w no acute ischemic changes found. Clopidogrel, BB, ISMN (ASA Allergy) were provided. No further cardiac testing performed. Cardiology was on board (Dr. Pollock). Possible ELEAZAR considered vs ATN vs AIN. BUN/Cr last 62.2/2.6 and we recommended f/uy in [place] where she receives medical care. Urine studies were consistent with tubular injury. Urine Protein to Cr ratio were 4.1 (nephrotic range). Diuretic/ ARB were held and serologic work up is pending. No obstruction on imaging. Nephrology was on board (Dr. Oseguera). Normocytic anemia considered, which trended down and was likely dilutional. Pt reports normal colonoscopy in recent hx. She denies h/o blood transfuision. There was no indication for transfusion. Comorbid HTN required ISMN, metoprolol, and nifedipine during stay. Irbesartan held due to ELEAZAR as mentioned earlier. HLD treated with Lipitor 80 mg. DM treated w ISS. Pt has h/o migraine and imitrex was available PRN. Pt has h/o hypothyroidism. TSH during stay 4.6 so we cont. levothyroxine and recommended repeat TSH in 3-4 weeks in [place]. DVT prophylaxis maintained w heparin throughout stay. IMAGING 12 Jan 2019 Stress Test EXERCISE RESULTS:Negative stress ECG with vasodilator stress, exaggerated heart rate and blood pressure response and no arrhythmias were elicited. NUCLEAR RESULTS:Probably normal myocardial perfusion imaging with diaphragmatic attenuation, normal left ventricular size and function. 11 Jan 2019 Renal US Right kidney measures 8.2 cm in sagittal length with increased echotexture. A few echogenic foci in the mid kidney measuring up to 4 mm suspicious for nonobstructing stones. Left kidney measures 7.4 cm in sagittal length. There is no evidence of hydronephrosis, cystic or solid mass lesion, bilaterally. Visualized portion of the liver appears unremarkable Impression: Both kidneys are small and echogenic compatible with the clinical history of chronic medical renal disease. Tiny echogenic foci in the right mid kidney measuring up to 4 mm suspicious for nonobstructing stones. [address] ab/pelvis Small hiatus hernia. Small umbilical hernia. Small bilateral nonobstructing renal stones. Vascular calcifications in the abdomen and pelvis. Diverticulosis coli in the distal descending and sigmoid colon without evidence of acute diverticulitis is. A pessary is present. Bilateral tiny calcified nodules in the included lower lung consistent with granulomas. Mild atelectatic changes in the right lung base, posteriorly with minimal pleural thickening. Multilevel degenerative disc disease in the lower thoracic and lumbar spine with fusion of L2-L4 and vertebroplasty of L3-L5. CXR There are no prior studies for comparison. There are multiple radiopaque densities projected over both hemithoraces but mainly on the right. There are sternal sutures, unfolded aorta, prominent heart and no sign of infiltrate or failure. The ends are sharp and the soft tissues are intact. There are degenerative changes with right shoulder calcification. Impression: No prior studies for comparison. Bilateral opaque densities projected over both hemithoraces. Has this patient been injured with shrapnel? Date of Discharge: 01/14/19 Ken Lozano MD Minutes to complete discharge: 40 Discharge Summary Reason For Visit: RULED OUT FOR MYOCARDIAL INFARCTION Current Active Problems Renal insufficiency (Acute) Ruled out for myocardial infarction (Acute) Condition: Good - Instructions Diet, Activity, Other Instructions: YOUR VISIT You were admitted to the hospital because you were having chest pain, belly pain and vomiting. You had several work-ups done that ruled out a heart attack. Your kidney function was also noted to be abnormal. You were evaluated by the kidney doctor and you were given IV fluids which improved your kidney function. Your hypertension medications, Irbesartan, Lasix and Hydrochlorothiazide were stopped as it can damage your kidneys. You need to follow up with your primary care doctor within 1-2 weeks for a repeat blood work to check your kidneys. Please drink plenty of water. You were also noted to be anemic. Please have repeat blood work with your primary care doctor. You may also need to have a repeat screening colonoscopy. Please discuss this with your primary care doctor. Your blood pressure was high while you were here in the hospital. Your hydralazine dose was changed to 50mg twice a day. MEDICATIONS Please take note with the following changes to your medications: 1. Hydralazine 50mg twice a day. 2. Please STOP taking Irbesartan, Lasix and Hydrochlorothiazide until you see your primary care doctor. Please continue taking your other home medications. ADDITIONAL CARE Please make an appointment with your primary care provider in [place] 1 week from today. Please make an appointment with a drawing operator in [place] to follow up on care for your kidneys. ADDITIONAL INFORMATION Please call 911 or come to the emergency department if you feel short of breath , chest pain, vision change, dizziness, loss of consciousness, abnormal bleeding or any other alarming symptoms. Referrals: [facility] [Provider Group] Wm Oseguera MD [Staff Physician] - Disposition: HOME - Home Medications Comprehensive Discharge Medication List: Ambulatory Orders Clopidogrel Bisulfate [Clopidogrel] 75 mg PO DAILY 01/10/19 Doxazosin Mesylate [Cardura -] 2 mg PO DAILY 01/10/19 Famotidine 20 mg PO DAILY 01/10/19 Insulin NPH Hum/Reg Insulin Hm [Humulin 70-30 Vial] 15 unit SQ BID 01/10/19 Isosorbide Mononitrate [Isosorbide Mononitrate ER] 30 mg PO DAILY 01/10/19 Latanoprost 0.005% Eye Drops [Xalatan 0.005% Eye Drops -] 1 drop OU HS 01/10/19 Levothyroxine [Synthroid -] 50 mcg PO DAILY 01/10/19 Metoprolol Tartrate 50 mg PO BID 01/10/19 Multivitamin [One-Daily Multi-Vitamin] 1 each PO DAILY 01/10/19 Ranitidine HCl 300 mg PO PRN PRN 01/10/19 Simvastatin [Zocor -] 40 mg PO HS 01/10/19 Sumatriptan Succinate [Imitrex -] 50 mg PO DAILY 01/10/19 Docusate Sodium [Colace -] 100 mg PO DAILY capsule 01/14/19 Nifedipine ER [Procardia XL -] 60 mg PO DAILY #30 tab.er.24 01/14/19 Sennosides [Senna -] 1 tab PO BID tablet 01/14/19 hydrALAZINE HCL [Apresoline -] 50 mg PO BID #60 tablet 01/14/19 This patient is new to me today: No Emergency Visit: No Critical Care patient: No - Discharge Referral Referred to [facility] No ATTENDING PHYSICIAN STATEMENT I saw and evaluated the patient. I reviewed the resident's note and discussed the case with the resident. I agree with the resident's findings and plan as documented. SUBJECTIVE: OBJECTIVE: ASSESSMENT AND PLAN:
[2019-01-16 16:07] LABS: ATYPICAL pANCA <1:20 titer (Neg:<1:20); C-ANCA <1:20 titer (Neg:<1:20)
== END 2019-01-14 16:41 | disposition home or self-care (01) | DRG 302 ==
LOC: JER 03:35 → JERBED 05:49 → J4W 19:43 → OBSVTOIN 01-13 11:59
PROVIDERS: ATTEND Internal Medicine
DX: I25.10 Atherosclerotic heart disease of native coronary artery without angina pectoris (principal); N17.0 Acute kidney failure with tubular necrosis; K44.9 Diaphragmatic hernia without obstruction or gangrene; K57.30 Diverticulosis of large intestine without perforation or abscess without bleeding; I10 Essential (primary) hypertension; E11.9 Type 2 diabetes mellitus without complications; E03.9 Hypothyroidism, unspecified; E86.1 Hypovolemia; E78.5 Hyperlipidemia, unspecified; D64.9 Anemia, unspecified; Z79.4 Long term (current) use of insulin; G43.909 Migraine, unspecified, not intractable, without status migrainosus; M47.9 Spondylosis, unspecified; Z95.5 Presence of coronary angioplasty implant and graft; I25.2 Old myocardial infarction; Z95.1 Presence of aortocoronary bypass graft; Z88.6 Allergy status to analgesic agent
CPT/HCPCS: 36415; 71045-TC-FY; 74176-TC; 76775-TC; 78452-TC; 80048; 80053; 80074; 81003; 82043; 82550; 82565; 82570; 82728; 82962; 83010; 83520; 83540; 83550; 83605; 83615; 83690; 83735; 83930; 83935; 83986; 84100; 84156; 84300; 84443; 84484; 84540; 85025; 85027; 85610; 85730; 86038; 86256; 86593; 87086; 87205; 87389; 93005; 93010; 93017; 93306-TC; 99284-25; A9502; G0378; J1644; J2785; J7030